=== PATIENT | female | born 1965 | race Caucasian/White ===

== ENCOUNTER 2016-07-08 07:04 | Day surgery (SDC) | payer BC ==
[~2016-07-08] VITALS: Ht 162.6 cm; Wt 63.5 kg
[~2016-07-08 07:04] MED LIST: BREO ELLIPTA 21 EACH; CLARITIN 10 MG10 MG PO; DULERA 100 MCG8.8 GM INH; INCRUSE ELLI62.5 MCG INH; LIORESAL 10 MG10 MG PO; PRISTIQ100 MG PO; PROVENTIL HFA6.7 GM INH; SPIRIVA18 MCG INH; TRAZODONE HCL150 MG PO
[2016-07-08 08:20] VITALS: BP 121/57; Ht 162.6 cm; Wt 63.5 kg
[2016-07-08 08:41] LABS: HCG URINE NEGATIVE (NEGATIVE)
[2016-07-08 09:01] LABS: HEMATOCRIT 39.3 % (36.0-48.0); HEMOGLOBIN 12.3 g/dL (12-16); MCH 31.6 pg (26.0-34.0); MCHC 31.3 g/dL (31.0-37.0); MEAN PLATELET VOLUME 10.2 fL (7.4-10.4); RBC 3.89 10x6/uL (4.00-5.40); RDW 13.3 % (11.5-14.5); WBC 7.9 10x3/uL (4.8-10.8)
--- NOTE | 2016-07-08 12:09 | NUR ---
C/O PAIN TRAMADOL 100 MG PO GIVEN FOR PAIN LEVEL 6
--- NOTE | 2016-07-08 16:03 | NUR ---
1230 IV DC WITH CATHER TIP INTACT
--- NOTE | 2016-08-12 09:40 | OP ---
PATIENT NAME: ROMEL BLANCAS MEDICAL RECORD: [id number] :61 LOCATION:D.OPS ADMISSION DATE: SURGEON: LUIS DANIEL VAZQUEZ MD DATE OF OPERATION: 07/08/2016 PREOPERATIVE DIAGNOSES: 1. Alpha-1 antitrypsin deficiency. 2. In need of frequent IV access in a patient who has poor peripheral IV access. POSTOPERATIVE DIAGNOSES: 1. Alpha-1 antitrypsin deficiency. 2. In need of frequent IV access in a patient who has poor peripheral IV access. PROCEDURES: 1. Placement of left infraclavicular PowerPort under fluoroscopic guidance. 2. Immediate surgeon interpretation of fluoroscopic images. SURGEON: Luis Daniel Vazquez MD CD REACTOR OPERATOR HEAD: None. BLOOD LOSS: Minimal. ANESTHESIA: General. COMPLICATIONS: None. The risks, possible complications and alternatives to procedure were explained to the patient. She elects to proceed. No radiologist was present for this procedure. Static fluoroscopic images are obtained and are kept in the PACS system. The surgeon interpretation of the fluoroscopic images is dictated within the body of this operative note. OPERATIVE COURSE: The patient was conveyed to the operating room electively on 07/08/2016. General anesthesia was induced by the anesthesia staff. The left chest was sterilely prepped and draped. A transverse incision was accomplished inferior to the left clavicle. Sharp dissection was carried down to the level of the pectoralis fascia. A subcutaneous pocket was created in a caudad direction. I then excised some of the subcutaneous adipose tissue between the skin and the pocket in order to allow for easier access of the port. I dissected in the deltopectoral groove. A generous cephalic vein was identified. Two ties were placed in the cephalic vein laterally. A loose tie was placed medially. A small venotomy was accomplished between the ties. I inserted the vein pick. I then advanced the PowerPort catheter. Under fluoroscopy, it was advanced to the cavoatrial junction. The catheter was shortened. It was attached to the PowerPort. The locking device was firmly engaged. I then tightened down on the medial tie. I placed another tie, this time a 3-0 Vicryl tie around the vein and the catheter medially. I then divided the cephalic vein between the ties. The port was then sutured to the underlying pectoralis fascia with 3-point fixation utilizing 3-0 Prolenes. I irrigated with normal saline. I accessed OPERATIVE REPORT [id number] ROMEL BLANCAS the port. It accessed easily. It aspirated dark, nonpulsatile blood and flushed easily as well. It was flushed with heparinized saline. There was no bleeding. The subdermal structures were approximated with interrupted 3-0 Vicryls. The skin was approximated with a running intracuticular 4-0 Vicryl. Benzoin and Steri-Strips were applied. The patient was then extubated and conveyed to post-anesthesia care unit where she was in stable condition. She will be dismissed home on tramadol for pain. There is no need for her to followup with me in the office unless the patient develops a complication related to this operative procedure. The surgeon interpretation of the fluoroscopic images is dictated within the body of this operative note. A final fluoroscopic image revealed the tip of the PowerPort catheter to be at the cavoatrial junction. There was no apparent kinking or twisting of the catheter. No radiographic evidence of complication. No pneumothorax. TRANSINT:[id number] Voice Confirmation ID: [id number] DOCUMENT ID: [id number] CC: HUMZA Camar[place] ROBERT MD at 0940 CC: ENZO MOHAMUD MD, SINDY NATH APN, YENNY WYATT MD and [id number] DICTATION DATE: 07/08/16 1115 SNAKER DRIVING HORSES: 07/08/16 1527 [facility] 07/08/16 [id number] [place] [address]
--- NOTE | 2016-08-12 09:40 | HP ---
PATIENT: ROMEL BLANCAS MEDICAL RECORD: [id number] ACCOUNT: [id number] LOCATION:STEPHENIE : 61 ADMISSION DATE: 07/08/16 HISTORY AND PHYSICAL EXAMINATION CHIEF COMPLAINT: Here for a port. I am going to plan to place a PowerPort. I am going to try to place it on the left. If it is not successful, then I will place it on the right. The risks, possible complications, and alternatives to port placement were explained to the patient. She elects to proceed. The patient has alpha-1 antitrypsin deficiency and requires transfusions frequently. She has poor IV access. For this reason, we are going to proceed with placement of the port. We specifically discussed the risks of port flippage, break, could break, could wear out, it could become infected. PAST MEDICAL AND SURGICAL HISTORY: The alpha-1 antitrypsin deficiency, allergic rhinitis, tracheobronchitis, history of exacerbation of chronic bronchitis, COPD, umbilical hernia and gastroesophageal reflux. ALLERGIES: KEFLEX. HOME MEDICATIONS: Last list of home medicines I have for the patient includes Advair Diskus, Viibryd, Victoza, Ventolin, Spiriva, quetiapine, ProAir inhaler, Latuda, levalbuterol. SOCIAL HISTORY: Smoker. She is on oxygen. FAMILY HISTORY: Alpha-1 antitrypsin deficiency does run in the family. PHYSICAL EXAMINATION: GENERAL: The patient does not appear acutely ill. She does appear chronically ill. The entire physical examination was performed in the presence of a female nurse. VITAL SIGNS: Reviewed. HEAD: External ears appear normal. EYES: Extraocular movements are intact. NECK: Trachea is midline. CHEST: Mild intercostal retractions. PULMONARY: Mildly labored. ABDOMEN: No peritonitis with movement. IMPRESSION: Poor IV access in a patient that requires frequent IV access for infusions due to alpha-1 antitrypsin deficiency. PLAN: Will be placement of PowerPort, left versus right. TRANSINT:[id number] Voice Confirmation ID: [id number] DOCUMENT ID: [id number] CC: Sindy Brooks APN HISTORY AND PHYSICAL [id number] ROMEL BLANCAS, LUIS DANIEL SAGASTUME at 0940 CC: ENZO MOHAMUD MD, SINDY BROOKS, SANDHYA CHING KEVIN M.D., [id number] and ODILON CONNORS MD DICTATION DATE: 07/08/16 0752 PASSENGER COACH DRIVER: 07/08/16824 [facility] 07/08/16 [address] [place] [address]
== END 2016-07-08 13:30 | disposition home or self-care (01) ==
LOC: D.OPS 07:04 → D.PAN 09:30 → D.OPS 10:00
PROVIDERS: Anesthesiology; Surgery
DX: E88.01 Alpha-1-antitrypsin deficiency (principal); J44.9 Chronic obstructive pulmonary disease, unspecified; K21.9 Gastro-esophageal reflux disease without esophagitis; F17.200 Nicotine dependence, unspecified, uncomplicated; Z99.81 Dependence on supplemental oxygen; Z79.899 Other long term (current) drug therapy; Z88.8 Allergy status to other drugs, medicaments and biological substances

== ENCOUNTER → 2016-10-06 20:11 | Outpatient (CLI) | payer BC ==
[2016-07-08 08:20] VITALS: BMI 24.0
== END | disposition home or self-care (01) ==
LOC: D.MAMMO 15:45
DX: Z12.31 Encounter for screening mammogram for malignant neoplasm of breast (principal)

== ENCOUNTER 2017-03-23 12:48 | Outpatient (CLI) | payer BC ==
[2017-03-23 13:39] VITALS: BP 129/66; BMI 24.9
[2017-04-20] MEDS ORDERED: VIIBRYD40 MG PO (06:30)
[2017-04-20] MEDS ORDERED: VYVANSE40 MG PO (06:30)
[2017-04-20] MEDS ORDERED: CLARITIN 10 MG10 MG PO (06:31)
[2017-04-20] MEDS ORDERED: FUROSEMIDE20 MG PO (06:31)
[2017-04-20] MEDS ORDERED: SINGULAIR10 MG PO (06:32)
[2017-04-20] MEDS ORDERED: LITHIUM CARBON300 MG PO (06:33)
[2017-04-20] MEDS ORDERED: ZYPREXA10 MG PO (06:33)
[2017-04-20] MEDS ORDERED: XOPENEX IN0.31 MG/3 UPD (06:34)
[2017-04-20] MEDS ORDERED: VITAMIN D5000 UNIT PO (06:34)
== END 2017-03-23 13:50 ==
LOC: D.OPS 12:48
DX: M81.0 Age-related osteoporosis without current pathological fracture (principal)

== ENCOUNTER → 2017-03-24 13:35 | Outpatient (CLI) | payer BC ==
[2017-03-23 13:39] VITALS: BMI 24.9
[~2017-03-24 13:35] MED LIST changes: +FUROSEMIDE20 MG PO; +LITHIUM CARBON300 MG PO; +SINGULAIR10 MG PO; +VIIBRYD40 MG PO; +VITAMIN D5000 UNIT PO; +VYVANSE40 MG PO; +XOPENEX IN0.31 MG/3 UPD; +ZYPREXA10 MG PO
== END | disposition home or self-care (01) ==
LOC: D.CT 13:35
DX: J44.9 Chronic obstructive pulmonary disease, unspecified (principal); R06.00 Dyspnea, unspecified

== ENCOUNTER → 2017-04-20 06:48 | Outpatient (CLI) | payer BC ==
[~2017-04-20] VITALS: Ht 162.6 cm; Wt 68.2 kg
--- NOTE | ~2017-04-20 | HEMODYNAMI ---
PATIENT:ROMEL BLANCAS MEDICAL RECORD: [id number] : 61 LOCATION:DAndrewCAT ADMISSION DATE: 04/20/17 Generatedon:04/20/20178:40 Patient name: ROMEL BLANCAS Patient #: [id number] SSN: : 1965 Date of study: 04/20/2017 Page: Of Hemodynamic Procedure Report Patient Data Patient Demographics Procedure consent was obtained First Name: ROMEL Gender: Female Last Name: MAGALIS : 1965 Patient #: [id number] Age: 51 year(s) Race: Unknown Additional ID: [id number] Contact details [address]: [address] [place] [address] State: [place] City: [place] Zip code: [address] Past Medical History Allergies Allergen Reaction Date Comments Reported Other allergy 04/20/2017 KEFLEX Admission Admission Data Admission Date: 04/20/2017 Admission Time: 6:48 Procedure Procedure Types Cath Procedure Diagnostic Procedure LHC LHC w/Coronaries Miscellaneous Procedures Moderate Sedation up to 15 minutes Procedure Description Procedure Date Procedure Date: 04/20/2017 Procedure Start Time: 8:27 Procedure End Time: 8:40 Procedure Staff Name Function Gama Dee MD Performing Physician Danelle Alicia RT Monitor Nicolasa Ward RT Scrub Joel Talbert RN Nurse Karl Pavon RN Can Tender Procedure Data Cath Procedure Fluoroscopy Diagnostic fluoroscopy Total fluoroscopy Time: 1.7 time: 1.7 min min Diagnostic fluoroscopy Total fluoroscopy dose: 168 dose: 168 mGy mGy Contrast Material Contrast Material Type Amount (ml) Isovue 300 56 Entry Location Entry Primary Successful Side Size Upsize Upsize Entry Closure Succes sful Closure Location (Fr) 1 (Fr) 2 (Fr) Remarks Device Remarks Femoral Right 5 Fr Exoseal artery Estimated blood loss: 5 ml Diagnostic catheters Device Type Used For End Catheter Placement MULTIPACK JL 4.0 5Fr Left Coronary catheter Angiography MULTIPACK 3DRC 5Fr Right Coronary catheter Angiography MULTIPACK Pigtail 5 Fr LV Angiography catheter Procedure Complications No complications Procedure Medications Medication Administration Route Dosage 0.9% NaCl I.V. 100 ml/hr Oxygen NC 2 l/min Heparin Flush Bag added to field 2 bags (1000units/500ml NS) Lidocaine 2% added to field 20 Versed I.V. 2 mg Fentanyl I.V. 100 mcg Hemodynamics Rest Heart Rate: 83 (bpm) Pressure Samples Time Site Value (mmHg) Purpose Heart Use Rate(bpm) 8:35 LV 112/-3,13 EDP 85 8:35 AO 110/61(84) Pullback 86 8:35 LV 107/-4,8 Pullback 86 Gradients Valve Time Site 1 Site 2 Mean SEP/DFP Peak To Heart Use (mmHg) (sec/min) Peak Rate (mmHg) (bpm) Aortic 8:35 LV AO 0 8 0 86 107/-4,8 110/61(84) Calculations Valve P-P Mean Valve Index Valve Source Name Gradient Area Flow (cm2) Aortic 0 0 0 0 Snapshots Pre Cath Intra NCS Post Cath Vital Signs Time Heart Resp SPO2 etCO2 NIBP (mmHg) Rhythm Pain Sedation Rate (ipm) (%) (mmHg) Status Level (bpm) 8:16:17 86 16 100 28 133/71(107) NSR 0 (11) 10(A) , No pain 8:20:58 83 17 100 30.2 128/67(96) NSR 0 (11) 10(A) , No pain 8:25:41 82 16 100 34.8 120/65(96) NSR 0 (11) 10(A) , No pain 8:30:23 84 15 100 34.1 115/62(90) NSR 0 (11) 9(A) , No pain 8:35:04 85 21 100 34.8 117/58(88) NSR 0 (11) 9(A) , No pain 8:39:45 83 12 100 38.6 127/68(91) NSR 0 (11) 9(A) , No pain Medications Time Medication Route Dose Verified Delivered Reason Notes Effec tiveness by by 8:15:42 0.9% NaCl I.V. 100 Joel Joel Per ml/hr Nitish Talbert physician RN RN 8:15:56 Oxygen NC 2 Joel Joel Per l/min Nitish Talbert physician RN RN 8:16:13 Heparin Flush added 2 Joel Joel used for Bag to bags Nitish Talbert procedure (1000units/500ml field RN RN NS) 8:16:28 Lidocaine 2% added 20ml Joel Joel for local to vial Nitish Talbert anesthetic field RN RN 8:26:57 Versed I.V. 2 mg Joel Joel for Lorigan Lorigan sedation RN RN 8:27:09 Fentanyl I.V. 100 Joel Joel for mcg Lorigan Lorfina sedation RN tool specialist Log Time Note 8:01:19 Karl Pavon RN sent for patient. Start room use. 8:01:20 Time tracking: Regular hours 8:01:24 Plan of Care:Hemodynamics will remain stable., Cardiac rhythm will remain stable., Comfort level will be maintained., Respiratory function will remain adequate., Patient/ family verbilizes understanding of procedure., Procedure tolerated without complication., Recovers from procedure without complications.. 8:06:09 Patient received from Pre/Post Procedure Room to CCL 1 Alert and oriented. Tansferred to table in Supine position. 8:06:11 Warm blankets applied, and shaw hugger turned on for patient comfort. 8:06:12 Correct patient and procedure confirmed by team. 8:06:14 Signed procedure consent form obtained from patient. 8:06:14 ECG and BP/O2 sat monitors applied to patient. 8:06:15 Full Disclosure recording started 8:15:20 Vital chart was started 8:15:42 0.9% NaCl 100 ml/hr I.V. was administered by Joel Talbert RN; Per physician; 8:15:56 Oxygen 2 l/min NC was administered by Joel Talbert RN; Per physician; 8:16:13 Heparin Flush Bag (1000units/500ml NS) 2 bags added to field was administered by Joel Talbert RN; used for procedure; 8:16:28 Lidocaine 2% 20ml vial added to field was administered by Joel Talbert RN; for local anesthetic; 8:17:28 Rhythm: sinus rhythm 8:17:31 Baseline sample Acquired. 8:17:40 H&P Date Dictated: 03/24/2017 Within 30 days and on chart., H&P Addendum completed by physician on day of procedure. (MUST COMPLETE FOR ALL OUTPATIENTS). 8:17:42 Pre-procedure instructions explained to patient. 8:17:42 Pre-op teaching completed and patient verbalized understanding. 8:17:43 Family in waiting room. 8:17:45 Patient NPO since Midnight. 8:17:55 Patient allergic to Other allergyKEFLEX 8:17:57 Is the patient allergic to Iodine/contrast media? No. 8:17:59 Is patient on blood thinner?No 8:18:04 Patient diabetic? No. 8:18:07 Previous problem with sedation/anesthesia? No ? 8:18:08 Snore? No 8:18:09 Sleep apnea? No 8:18:10 Deviated septum? No 8:18:11 Opens mouth fully? Yes 8:18:11 Sticks out tongue? Yes 8:18:13 Airway obstruction? No ? 8:18:15 Dentures? No ? 8:18:17 Pre procedure: right dorsailis pedis pulse 2+ Normal; easily identifiable; not easily obliterated 8:18:26 Pre procedure: right radial pulse 0-Absent 8:18:33 Patient pain scale 0/10 ?. 8:18:40 IV patent on arrival in left hand with 0.9% NaCl at O. 8:18:43 Lab results completed and on chart. 8:18:47 Right groin area was prepped with chlora-prep and draped in sterile fashion 8:18:49 Alarms reviewed by R. N. 8:18:49 Sharps counted by scrub and verified by R.N. 8:19:05 Use device set Femoral Dx 8:19:06 ACIST Syringe (78414) opened to sterile field. 8:19:07 Bag Decanter (2002S) opened to sterile field. 8:19:07 Medline Cath Pack ([id number]) opened to sterile field. 8:19:08 SHEATH 5FR [place] (NWN319) opened to sterile field. 8:19:09 DIAGNOSTIC WIRE .035 260cm J wire (260977) opened to sterile field. 8:19:10 ACIST Hand Control (77279) opened to sterile field. 8:19:11 ACIST Manifold (39643) opened to sterile field. 8:19:12 DIAGNOSTIC Multipack 5Fr catheter set ([id number]) opened to sterile field. 8:19:12 Tegaderm 4 x 4 (1626W) opened to sterile field. 8:19:13 PERCUTANEOUS ENTRY 19GA needle opened to sterile field. 8::27 Final Timeout: patient, procedure, and site verified with staff and physician. All members of the team are in agreement. 8::29 Right groin site verified by team. 8::33 Physical assessment completed. ASA score P 2 - A patient with mild systemic disease as per Gama Dee MD. 8:21:36 Sedation plan: IV Moderate Sedation Medication:Versed, Fentanyl 8::43 Procedure started. 8::57 Versed 2 mg I.V. was administered by Joel Talbert RN; for sedation; 8:27:09 Fentanyl 100 mcg I.V. was administered by Joel Talbert RN; for sedation; 8::33 Local anesthetic to right femoral artery with Lidocaine 2% by Gama Dee MD.INITIAL ACCESS ONLY 8:28:57 A 5 Fr sheath was inserted into the Right Femoral artery 8:29:41 A MULTIPACK JL 4.0 5Fr catheter was advanced over the wire and used for Left Coronary Angiography. 8:31:34 Catheter removed. 8:32:23 A MULTIPACK 3DRC 5Fr catheter was advanced over the wire and used for Right Coronary Angiography. 8:33:34 Catheter removed. 8:34:11 A MULTIPACK Pigtail 5 Fr catheter was advanced over the wire and used for LV Angiography. 8:35:15 LV hemodynamics recorded. 8:35:17 LV gram done using NEELY 8:35:21 Injector settings: Ml/sec: 10, Volume: 20, 8:35:26 EF : 50 % 8:35:46 Catheter removed. 8:35:49 EXOSEAL 5Fr (EX500) opened to sterile field. 8:36:01 Sheath removed intact; hemostasis achieved with Exoseal to the Right Femoral artery. 8:36:03 Procedure ended.(Physican Out) 8:36:13 Fluoroscopy time 01.70 minutes. 8:36:16 Fluoroscopy dose: 168 mGy 8:36:16 Flurop Dose total: 168 8:36:19 Contrast amount:Isovue 300 56ml. 8:36:21 Sharps counted by scrub and verified by R.N. 8:36:22 Insertion/operative site no bleeding no hematoma. 8:36:25 Post-op/insertion site Right Femoral artery dressed using a 4 x 4 and Tegaderm. 8:36:27 Post right femoral artery:stable, clean and dry 8:36:29 Post Procedure Pulses reassessed and unchanged 8:36:31 Post-procedure physical assessment completed. ASA score P 2 - A patient with mild systemic disease as per Gama Dee MD. 8:36:33 Post procedure rhythm: unchanged. 8:36:35 Estimated blood loss: 5 ml 8:36:36 Post procedure instruction explained to patient.Patient verbalizes understanding. 8:36:37 Patient needs reinforcement of post procedure teaching. 8:36:43 Procedure type changed to Cath procedure, Diagnostic procedure, LHC, LHC w/Coronaries, Miscellaneous Procedures, Moderate Sedation up to 15 minutes 8:37:28 Procedure and supply charges have been captured, reviewed, submitted and are correct. 8:37:32 Procedure Complication : No complications 8:37:34 See physician's report for complete and final results. 8:39:48 Vital chart was stopped 8:39:50 Report given to Pre/Post Procedure Room. 8:39:55 Patient transfered to Pre/Post Procedure Room with Stretcher. 8:40:20 Procedure ended. 8:40:20 Full Disclosure recording stopped 8:40:29 End room use (Document Last) Device Usage Item Name Manufacture Quantity Catalog Hospital Part Current Minimal Lot# / Number Charge Number Stock Stock Serial# Code ACIST Acist 1 99967 066922 579674 909297 20 Syringe Medical (76992) Systems Inc Bag Decanter Microtek 1 2001S 577525 78235 194282 5 () Medical Inc. Medline Cath Cardinal 1 [id number] 353983 54111 583041 5 Pack Health ([id number]) SHEATH 5FR Terumo 1 [id number] 109054 281898 295168 40 [place] (FUL467) DIAGNOSTIC St Jm 1 161316 184822 449487 233072 30 WIRE .035 260cm J wire (378020) ACIST Hand Acist 1 66805 730713 963056 633953 5 Control Medical (51429) Systems Inc ACIST Acist 1 32074 340753 565972 260769 5 Manifold Medical (57488) Systems Inc DIAGNOSTIC Cardinal 1 [id number] 449624 92742 808165 30 Multipack Health 5Fr catheter set ([id number]) Tegaderm 4 x 3M 1 1626W 490510 836759 634183 5 4 (1626W) PERCUTANEOUS [facility] 1 [id number] 167389 150244 5 ENTRY 19GA needle MULTIPACK JL Cardinal 1 693736 5 4.0 5Fr Health catheter MULTIPACK Cardinal 1 768776 5 3DRC 5Fr Health catheter MULTIPACK Cardinal 1 237729 5 Pigtail 5 Fr Health catheter EXOSEAL 5Fr Cardinal 1 EX500 068784 347559 425658 10 (EX500) Health Signature Audit [place] Stage Time Signature Unsigned Intra-Procedure 04/20/2017 Danelle 8:40:44 AM Counts RT(R) Signatures Monitor : Danelle Signature : Counts RT Date : Time : [address] [address]
[2017-04-20 06:53] VITALS: BP 126/65; Ht 162.6 cm; Wt 68.2 kg
[2017-04-20 07:03] LABS: BASOPHILS 0.4 % (0-2); EOSINOPHILS 2.9 % (0-7); HEMATOCRIT 40.9 % (36.0-48.0); HEMOGLOBIN 13.1 g/dL (12-16); IMMATURE GRANULOCYTES 0.1 % (0-5); LYMPHOCYTES 19.8 % (15-50); MCH 31.6 pg (26.0-34.0); MCV 98.8 fL (80.0-100.0); MEAN PLATELET VOLUME 9.5 fL (7.4-10.4); NEUTROPHILS 70.8 % (40-80); RBC 4.14 10x6/uL (4.00-5.40); RDW 13.3 % (11.5-14.5); WBC 7.8 10x3/uL (4.8-10.8)
[2017-04-20 07:17] LABS: CALC OSMOLALITY 283 mosm/kg (275-300); CALCIUM 9.9 mg/dL (8.5-10.1); CARBON DIOXIDE 25.6 mmol/L (21.0-32.0); CHLORIDE - SERUM 107 mmol/L (98-107); CREATININE - SERUM 0.8 mg/dL (0.6-1.3); PLATELET COUNT 370 10x3/uL (130-400); POTASSIUM - SERUM 4.1 mmol/L (3.5-5.1); SODIUM 142 mmol/L (136-145); UREA NITROGEN 14 mg/dL (7-18); eGFR NON AFRICAN AMERICAN 79 mL/min (90-120)
[2017-04-20 07:18] LABS: GLUCOSE 93 mg/dL (74-106)
--- NOTE | 2017-04-20 09:16 | NUR ---
5 FR EXOSEAL R/GROIN CDI NO BLEEDING NO HEMATOMA NOTED. VSS WITH PAIN DENIED
--- NOTE | 2017-04-20 09:24 | NUR ---
RESTING QUIELTY WITH FAMILY AT SIDE. 5 FR EXOSEAL R/GROIN CDI NO BLEEDING NO HEMATOMA NOTED O2 AT 2 LITERS
--- NOTE | 2017-04-20 09:44 | NUR ---
5 FR EXOSEAL R/GROIN CDI NO BLEEDING NO HEMATOMA NOTED PULSES PALPABLE. VSS WITH CHEST PAIN DENIED
--- NOTE | 2017-04-20 10:12 | NUR ---
SANDWICH AND SODA TO BEDSIDE WITH FAMILY TO ASSIST. 5 FR EXOSEAL R/GROIN REMAINS CDI WITH NO CHANGE. VSS
--- NOTE | 2017-04-20 10:54 | NUR ---
NO CHANGE IN ASSESSMENT PAIN DENIED
--- NOTE | 2017-04-20 11:00 | NUR ---
5 FR EXOSEAL R/GROIN CDI NO BLEEDING NO HEMATOMA NOTED. REPOSITIONED TO SITTING WITH HOB UP 45 DEGREES. CHEST PAIN IS DENIED
--- NOTE | 2017-04-20 11:22 | NUR ---
PIV REMOVED WITH DRESSING APPLIED. R/GROIN REMAINS CDI VERBAL AND WRITTEN DISCHARGE GONE OVER WITH PATIENT AND SISTER BOTH VERBALIZE UNDERSTANDING. PATIENT UP TO GET DRESSED FOR DISCHARGE HOME
--- NOTE | 2017-04-20 11:37 | NUR ---
VERBAL AND WRITTEN DISCHARGE GONE OVER AGAIN TO CONFIRM UNDERSTANDING. R/GROIN CDI WITH NO DISTRESS. PATIENT LEFT VIA WC TO PARKING FOR SISTER TO DRIVE HOME
== END | disposition home or self-care (01) ==
LOC: D.CATH 06:48
PROVIDERS: Internal Medicine Cardiovascular Disease
DX: I20.9 Angina pectoris, unspecified (principal); R06.02 Shortness of breath; J44.9 Chronic obstructive pulmonary disease, unspecified; I42.9 Cardiomyopathy, unspecified; Z01.812 Encounter for preprocedural laboratory examination

== ENCOUNTER 2017-11-24 12:30 | Inpatient (IN) | payer BC ==
[~2017-11-24] VITALS: Ht 162.6 cm; Wt 64.5 kg
--- NOTE | ~2017-11-24 | CN ---
PATIENT NAME:ROMEL BLANCAS MEDICAL RECORD: [id number] : 61 LOCATION:D.MS [place]2227 ADMIT DATE: 11/24/17 ACCOUNT: [id number] CONSULTING PHYSICIAN: SHERMAN GALVEZ MD REFERRING PHYSICIAN: ERMIAS VIERA MD DATE OF CONSULTATION: 11/25/2017 CONSULT REQUESTING PHYSICIAN: Ermias Viera MD REASON FOR CONSULTATION: Acute exacerbation of chronic obstructive pulmonary disease, sjfla-hu-ryjapui hypoxic respiratory failure. HISTORY OF PRESENT ILLNESS: Ms. Blancas is a 52-year-old female who has a history of alpha-1 antitrypsin deficiency. She is followed at [facility]. The patient is getting Prolastin every week. According to the patient, she was short of breath for the last few days. She is coughing without much sputum production. There is no fever or chills. No night sweats. REVIEW OF SYSTEMS: Mainly in the history of present illness. PAST MEDICAL HISTORY: 1. COPD, moderate severe degree. 2. Alpha-1 antitrypsin deficiency. 3. History of cardiomyopathy and congestive heart failure 10 years ago. 4. Anxiety, depression. PAST SURGICAL HISTORY: 1. She has a . 2. Left ovary removed. ALLERGIES: SHE IS ALLERGIC TO CEPHALEXIN, AND ALBUTEROL NEBULIZER MAKE TACHYCARDIC. MEDICATIONS: Other medication on [employer] is reviewed. PERSONAL AND SOCIAL HISTORY: The patient is an ex-smoker. She is a nondrinker. FAMILY HISTORY: Significant for alpha-1 deficiency. PHYSICAL EXAMINATION: GENERAL: Now, the patient is sitting comfortably in a chair. She is not in acute distress. VITAL SIGNS: The blood pressure is 128/72, pulse is 106, respiration is 18, temperature is 99, SpO2 is 96% on 3 liters nasal cannula. HEENT: Conjunctivae are pink. Sclerae is not icteric. NECK: Supple, no JVD. CHEST: The chest excursion is minimal on both sides. There is no wheeze, no rales. HEART: Rhythm regular, normal sound, no murmur. ABDOMEN: Soft, bowel sounds present. No hepatosplenomegaly. RECTAL: Deferred. EXTREMITIES: No cyanosis, no clubbing, no pedal edema. SKIN: Warm, normal turgor. CENTRAL NERVOUS SYSTEM: The patient is awake and alert. There are no obvious cranial nerve abnormality. The gait was not tested. CONSULT REPORT [id number] ROMEL BLANCAS CHEST RADIOGRAPH: Hyperinflation. There is no acute infiltrate. OTHER LABORATORY DATA: CBC: WBC 10.9, hemoglobin 11.6, hematocrit 36.2, the platelet count 390. Chemistry: Sodium 141, potassium is 4, BUN is 7, creatinine 0.8. ABG: The pH is 7.40, pCO2 is 38.7, the pO2 is 97, bicarbonate 24.1. IMPRESSION: 1. Acute exacerbation of chronic obstructive pulmonary disease. 2. Hxrsy-yc-wztlxyc hypoxic respiratory failure. 3. Acute tracheobronchitis. 4. Alpha-1 antitrypsin deficiency. 5. Leukocytosis. 6. Anxiety. 7. History of congestive heart failure. RECOMMENDATION: 1. Start on doxycycline 100 mg b.i.d. 2. Xopenex nebulizer, ipratropium nebulizer, Brovana and budesonide nebulizer. Start her on Daliresp 250 mcg daily. 3. Supplemental oxygen. 4. Follow up labs and chest radiograph. Dr. Viera had discussed in length with the family. Dr. Viera, thank you for involving me in the care of Ms. Blancas. TRANSINT:[id number] Voice Confirmation ID: [id number] DOCUMENT ID: [id number] SHERMAN GALVEZ MD at 1110 CC: [id number] DICTATION DATE: 11/25/17 1618 COMMERCIAL CARPENTER: 11/25/17 1708 DIS IN 12/01/17 [id number] [place] [id number]
[2017-11-24 13:52] LABS: BASOPHILS 0.7 % (0-2); EOSINOPHILS 0.8 % (0-7); HEMATOCRIT 38.1 % (36.0-48.0); HEMOGLOBIN 12.3 g/dL (12-16); IMMATURE GRANULOCYTES 0.3 % (0-5); LYMPHOCYTES 19.8 % (15-50); MCH 31.3 pg (26.0-34.0); MCHC 32.3 g/dL (31.0-37.0); MCV 96.9 fL (80.0-100.0); MEAN PLATELET VOLUME 9.8 fL (7.4-10.4); NEUTROPHILS 71.4 % (40-80); PLATELET COUNT 385 10x3/uL (130-400); RBC 3.93 10x6/uL (4.00-5.40); RDW 13.5 % (11.5-14.5); WBC 7.5 10x3/uL (4.8-10.8)
[2017-11-24 14:16] LABS: ALBUMIN 3.6 g/dL (3.4-5.0); ALKALINE PHOSPHATASE 75 U/L (46-116); ALT (SGPT) 23 U/L (10-68); BILIRUBIN - TOTAL 0.24 mg/dL (0.2-1.3); CALC OSMOLALITY 279 mosm/kg (275-300); CALCIUM 9.8 mg/dL (8.5-10.1); CARBON DIOXIDE 29.2 mmol/L (21.0-32.0); CHLORIDE - SERUM 106 mmol/L (98-107); CREATININE - SERUM 0.8 mg/dL (0.6-1.3); GLUCOSE 86 mg/dL (74-106); POTASSIUM - SERUM 3.7 mmol/L (3.5-5.1); PROTEIN - SERUM 6.8 g/dL (6.4-8.2); SODIUM 142 mmol/L (136-145); UREA NITROGEN 7 mg/dL (7-18); eGFR NON AFRICAN AMERICAN 79 mL/min (90-120)
[2017-11-24 14:29] LABS: PRO BNP 170 pg/mL (0-125)
[2017-11-24 14:30] LABS: TROPONIN-I < 0.017 ng/mL (0.000-0.060)
[2017-11-24 16:35] LABS: APPEARANCE CLEAR (CLEAR); BILIRUBIN NEGATIVE (NEGATIVE); COLOR YELLOW (YELLOW); GLUCOSE NEGATIVE (NEGATIVE); KETONE NEGATIVE (NEGATIVE); NITRITE NEGATIVE (NEGATIVE); PROTEIN NEGATIVE (NEGATIVE); UROBILINOGEN NORMAL (NORMAL)
[2017-11-24 16:40] LABS: BACTERIA FEW /hpf (NONE SEEN); EPITHELIAL CELLS 0-5 /hpf (0-5); RED CELLS - URINE 0-5 /hpf (0-5); WHITE CELLS - URINE 0-5 /hpf (0-5)
[2017-11-24] MEDS ORDERED: LUNESTA2 M1 PO (17:37)
[2017-11-24] MEDS ORDERED: VICTOZA0.6 MG/0.1 SQ (17:37)
[2017-11-24 17:56] VITALS: BP 132/53; Ht 162.6 cm; Wt 64.5 kg
[2017-11-24 19:59] VITALS: BP 96/52
[2017-11-24 23:24] VITALS: BP 122/53
[2017-11-25 03:50] VITALS: BP 113/75
[2017-11-25 06:48] VITALS: BP 135/60
[2017-11-25 10:36] LABS: BASOPHILS 0 % (0-2); EOSINOPHILS 0 % (0-7); HEMATOCRIT 36.2 % (36.0-48.0); HEMOGLOBIN 11.6 g/dL (12-16); IMMATURE GRANULOCYTES 0.1 % (0-5); LYMPHOCYTES 4.7 % (15-50); MCH 31.1 pg (26.0-34.0); MCV 97.1 fL (80.0-100.0); MEAN PLATELET VOLUME 9.8 fL (7.4-10.4); MONOCYTES 2.7 % (2-11); NEUTROPHILS 92.5 % (40-80); PLATELET COUNT 390 10x3/uL (130-400); RBC 3.73 10x6/uL (4.00-5.40); RDW 13.2 % (11.5-14.5)
[2017-11-25 10:38] LABS: WBC 10.9 10x3/uL (4.8-10.8)
[2017-11-25 10:51] LABS: ALBUMIN 3.2 g/dL (3.4-5.0); ALKALINE PHOSPHATASE 71 U/L (46-116); ALT (SGPT) 19 U/L (10-68); BILIRUBIN - TOTAL 0.16 mg/dL (0.2-1.3); CALC OSMOLALITY 280 mosm/kg (275-300); CALCIUM 9.9 mg/dL (8.5-10.1); CARBON DIOXIDE 29.1 mmol/L (21.0-32.0); CHLORIDE - SERUM 107 mmol/L (98-107); CREATININE - SERUM 0.8 mg/dL (0.6-1.3); GLUCOSE 127 mg/dL (74-106); PROTEIN - SERUM 6.8 g/dL (6.4-8.2); SODIUM 141 mmol/L (136-145); UREA NITROGEN 7 mg/dL (7-18); eGFR NON AFRICAN AMERICAN 79 mL/min (90-120)
[2017-11-25 12:28] VITALS: BP 132/69
[2017-11-25 15:53] VITALS: BP 128/72
[2017-11-25 20:08] VITALS: BP 102/51
[2017-11-25 23:54] VITALS: BP 101/51
[2017-11-26 03:53] VITALS: BP 144/81
[2017-11-26 05:57] LABS: BASOPHILS 0 % (0-2); EOSINOPHILS 0 % (0-7); HEMATOCRIT 37.5 % (36.0-48.0); HEMOGLOBIN 11.7 g/dL (12-16); IMMATURE GRANULOCYTES 0.2 % (0-5); LYMPHOCYTES 5.9 % (15-50); MCH 30.8 pg (26.0-34.0); MCHC 31.2 g/dL (31.0-37.0); MCV 98.7 fL (80.0-100.0); MEAN PLATELET VOLUME 10.5 fL (7.4-10.4); MONOCYTES 1.7 % (2-11); NEUTROPHILS 92.2 % (40-80); PLATELET COUNT 417 10x3/uL (130-400); RDW 13.4 % (11.5-14.5)
[2017-11-26 06:03] LABS: WBC 13.9 10x3/uL (4.8-10.8)
[2017-11-26 06:21] LABS: ALBUMIN 3.2 g/dL (3.4-5.0); ANION GAP 9.9 mmol/L (8-16); BILIRUBIN - TOTAL 0.21 mg/dL (0.2-1.3); CALCIUM 9.9 mg/dL (8.5-10.1); CREATININE - SERUM 0.9 mg/dL (0.6-1.3); POTASSIUM - SERUM 3.9 mmol/L (3.5-5.1)
[2017-11-26 06:41] LABS: PROTEIN - SERUM 6.7 g/dL (6.4-8.2)
[2017-11-26 08:00] VITALS: BP 126/60
[2017-11-26 12:50] VITALS: BP 154/84
[2017-11-26 15:36] VITALS: BP 119/66
[2017-11-26 20:01] VITALS: BP 117/63
[2017-11-27 03:45] VITALS: BP 151/72
[2017-11-27 05:10] LABS: BASOPHILS 0 % (0-2); EOSINOPHILS 0 % (0-7); HEMATOCRIT 36.8 % (36.0-48.0); HEMOGLOBIN 11.4 g/dL (12-16); IMMATURE GRANULOCYTES 0.5 % (0-5); LYMPHOCYTES 6.9 % (15-50); MONOCYTES 4.3 % (2-11); NEUTROPHILS 88.3 % (40-80); PLATELET COUNT 388 10x3/uL (130-400); RBC 3.68 10x6/uL (4.00-5.40); RDW 13.4 % (11.5-14.5); WBC 14.8 10x3/uL (4.8-10.8)
[2017-11-27 06:01] LABS: ALKALINE PHOSPHATASE 67 U/L (46-116); ALT (SGPT) 27 U/L (10-68); BILIRUBIN - TOTAL 0.21 mg/dL (0.2-1.3); CALC OSMOLALITY 291 mosm/kg (275-300); CALCIUM 9.7 mg/dL (8.5-10.1); CARBON DIOXIDE 29.6 mmol/L (21.0-32.0); CHLORIDE - SERUM 110 mmol/L (98-107); CREATININE - SERUM 0.8 mg/dL (0.6-1.3); GLUCOSE 172 mg/dL (74-106); POTASSIUM - SERUM 4.1 mmol/L (3.5-5.1); PROTEIN - SERUM 6.2 g/dL (6.4-8.2); SODIUM 144 mmol/L (136-145); UREA NITROGEN 14 mg/dL (7-18); eGFR NON AFRICAN AMERICAN 79 mL/min (90-120)
[2017-11-27 08:35] VITALS: BP 153/70
[2017-11-27 13:59] VITALS: BP 131/58
[2017-11-27 16:44] VITALS: BP 124/63
[2017-11-27 19:41] VITALS: BP 121/54
[2017-11-28 01:24] VITALS: BP 96/53
[2017-11-28 04:12] VITALS: BP 151/90
[2017-11-28 05:55] LABS: BASOPHILS 0 % (0-2); EOSINOPHILS 0 % (0-7); HEMATOCRIT 35.8 % (36.0-48.0); HEMOGLOBIN 11.1 g/dL (12-16); IMMATURE GRANULOCYTES 0.5 % (0-5); LYMPHOCYTES 7.7 % (15-50); MCH 30.7 pg (26.0-34.0); MCV 99.2 fL (80.0-100.0); MEAN PLATELET VOLUME 10.1 fL (7.4-10.4); MONOCYTES 7.3 % (2-11); NEUTROPHILS 84.5 % (40-80); PLATELET COUNT 378 10x3/uL (130-400); RBC 3.61 10x6/uL (4.00-5.40); RDW 13.5 % (11.5-14.5); WBC 11.5 10x3/uL (4.8-10.8)
[2017-11-28 06:21] LABS: ALBUMIN 2.9 g/dL (3.4-5.0); ALKALINE PHOSPHATASE 71 U/L (46-116); ALT (SGPT) 22 U/L (10-68); BILIRUBIN - TOTAL 0.18 mg/dL (0.2-1.3); CALC OSMOLALITY 293 mosm/kg (275-300); CALCIUM 9.7 mg/dL (8.5-10.1); CARBON DIOXIDE 32.2 mmol/L (21.0-32.0); CHLORIDE - SERUM 112 mmol/L (98-107); CREATININE - SERUM 0.7 mg/dL (0.6-1.3); GLUCOSE 134 mg/dL (74-106); MAGNESIUM - SERUM 2.3 mg/dL (1.8-2.4); PHOSPHOROUS 1.8 mg/dL (2.5-4.9); SODIUM 147 mmol/L (136-145); UREA NITROGEN 13 mg/dL (7-18); eGFR NON AFRICAN AMERICAN > 90 mL/min (90-120)
[2017-11-28 09:05] VITALS: BP 144/81
[2017-11-28 11:57] VITALS: BP 150/78
[2017-11-28 16:53] VITALS: BP 127/54
[2017-11-28 20:00] VITALS: BP 135/77
[2017-11-29 04:47] LABS: BASOPHILS 0 % (0-2); EOSINOPHILS 0 % (0-7); HEMATOCRIT 34.9 % (36.0-48.0); HEMOGLOBIN 10.8 g/dL (12-16); IMMATURE GRANULOCYTES 0.9 % (0-5); LYMPHOCYTES 9.4 % (15-50); MCH 30.5 pg (26.0-34.0); MCHC 30.9 g/dL (31.0-37.0); MCV 98.6 fL (80.0-100.0); MONOCYTES 4.4 % (2-11); NEUTROPHILS 85.3 % (40-80); PLATELET COUNT 339 10x3/uL (130-400); RBC 3.54 10x6/uL (4.00-5.40); RDW 13.5 % (11.5-14.5); WBC 10.4 10x3/uL (4.8-10.8)
[2017-11-29 05:15] LABS: ALBUMIN 2.6 g/dL (3.4-5.0); ALKALINE PHOSPHATASE 64 U/L (46-116); ALT (SGPT) 23 U/L (10-68); BILIRUBIN - TOTAL 0.23 mg/dL (0.2-1.3); CALC OSMOLALITY 293 mosm/kg (275-300); CALCIUM 9.3 mg/dL (8.5-10.1); CARBON DIOXIDE 33.7 mmol/L (21.0-32.0); CHLORIDE - SERUM 111 mmol/L (98-107); CREATININE - SERUM 0.7 mg/dL (0.6-1.3); GLUCOSE 149 mg/dL (74-106); POTASSIUM - SERUM 4.4 mmol/L (3.5-5.1); PROTEIN - SERUM 5.6 g/dL (6.4-8.2); SODIUM 146 mmol/L (136-145); THYROID STIMULATING HORMONE 0.92 uIU/mL (0.36-3.74); UREA NITROGEN 12 mg/dL (7-18); eGFR NON AFRICAN AMERICAN > 90 mL/min (90-120)
[2017-11-29 05:46] VITALS: BP 124/71
[2017-11-29 07:44] VITALS: BP 142/77
[2017-11-29 15:49] VITALS: BP 131/71
[2017-11-29 19:53] VITALS: BP 137/80
[2017-11-29 23:54] VITALS: BP 138/78
[2017-11-30 04:00] VITALS: BP 116/70
[2017-11-30 05:19] LABS: BASOPHILS 0.1 % (0-2); EOSINOPHILS 0 % (0-7); HEMATOCRIT 34.6 % (36.0-48.0); HEMOGLOBIN 10.9 g/dL (12-16); LYMPHOCYTES 8.6 % (15-50); MCHC 31.5 g/dL (31.0-37.0); MCV 98.3 fL (80.0-100.0); MEAN PLATELET VOLUME 10.2 fL (7.4-10.4); MONOCYTES 5.4 % (2-11); NEUTROPHILS 84.9 % (40-80); PLATELET COUNT 355 10x3/uL (130-400); RBC 3.52 10x6/uL (4.00-5.40); RDW 13.8 % (11.5-14.5)
[2017-11-30 05:29] LABS: ALBUMIN 2.8 g/dL (3.4-5.0); ALKALINE PHOSPHATASE 61 U/L (46-116); ALT (SGPT) 23 U/L (10-68); BILIRUBIN - TOTAL 0.25 mg/dL (0.2-1.3); CALCIUM 9.6 mg/dL (8.5-10.1); CARBON DIOXIDE 29.9 mmol/L (21.0-32.0); CHLORIDE - SERUM 108 mmol/L (98-107); CREATININE - SERUM 0.8 mg/dL (0.6-1.3); GLUCOSE 145 mg/dL (74-106); PROTEIN - SERUM 5.8 g/dL (6.4-8.2); SODIUM 146 mmol/L (136-145); eGFR NON AFRICAN AMERICAN 79 mL/min (90-120)
[2017-11-30 05:37] LABS: CALC OSMOLALITY 294 mosm/kg (275-300); UREA NITROGEN 16 mg/dL (7-18)
[2017-11-30 08:11] VITALS: BP 131/75
[2017-11-30 11:43] VITALS: BP 124/75
[2017-11-30 15:25] VITALS: BP 109/70
[2017-11-30 20:00] VITALS: BP 123/60
[2017-12-01 04:00] VITALS: BP 105/56
[2017-12-01 05:48] LABS: BASOPHILS 0.1 % (0-2); EOSINOPHILS 2.3 % (0-7); HEMATOCRIT 34.8 % (36.0-48.0); HEMOGLOBIN 10.9 g/dL (12-16); IMMATURE GRANULOCYTES 1.3 % (0-5); LYMPHOCYTES 26.4 % (15-50); MCHC 31.3 g/dL (31.0-37.0); MCV 98.9 fL (80.0-100.0); MEAN PLATELET VOLUME 9.9 fL (7.4-10.4); MONOCYTES 8.2 % (2-11); NEUTROPHILS 61.7 % (40-80); PLATELET COUNT 330 10x3/uL (130-400); RBC 3.52 10x6/uL (4.00-5.40); RDW 14.4 % (11.5-14.5); WBC 10.3 10x3/uL (4.8-10.8)
[2017-12-01 06:23] LABS: CALC OSMOLALITY 283 mosm/kg (275-300); CALCIUM 9.4 mg/dL (8.5-10.1); CARBON DIOXIDE 31.5 mmol/L (21.0-32.0); CHLORIDE - SERUM 110 mmol/L (98-107); CREATININE - SERUM 0.8 mg/dL (0.6-1.3); POTASSIUM - SERUM 4.2 mmol/L (3.5-5.1); SODIUM 143 mmol/L (136-145); UREA NITROGEN 13 mg/dL (7-18); eGFR NON AFRICAN AMERICAN 79 mL/min (90-120)
[2017-12-01 06:24] LABS: GLUCOSE 87 mg/dL (74-106)
[2017-12-01 07:45] LABS: APPEARANCE CLEAR (CLEAR); COLOR STRAW (YELLOW)
[2017-12-01 07:46] LABS: BILIRUBIN NEGATIVE (NEGATIVE); GLUCOSE NEGATIVE (NEGATIVE); KETONE NEGATIVE (NEGATIVE); NITRITE NEGATIVE (NEGATIVE); PROTEIN NEGATIVE (NEGATIVE); UROBILINOGEN NORMAL (NORMAL)
[2017-12-01 09:35] VITALS: BP 126/63
[2017-12-01] MEDS ORDERED: FEXOFENADINE HC60 MG PO (12:13)
[2017-12-01] MEDS ORDERED: BROVANA15 MCG/2 M INH (12:14)
[2017-12-01] MEDS ORDERED: DOXYCYCLINE HY100 M2 PO (12:14)
[2017-12-01] MEDS ORDERED: XOPENEX 0.0.63 MG/3 UPD (12:15)
[2017-12-01] MEDS ORDERED: ATROVENT 0.02%2.5 ML UPD (12:15)
[2017-12-01] MEDS ORDERED: PULMICORT0.5 MG/21 UPD (12:16)
[2017-12-01] MEDS ORDERED: SINGULAIR10 MG PO (12:16)
[2017-12-01] MEDS ORDERED: DALIRESP500 MCG PO (12:17)
[2017-12-01] MEDS ORDERED: PREDNISONE20 MG PO (12:18)
[2017-12-01 16:07] VITALS: BP 154/71
== END 2017-12-01 15:00 | disposition home health service (06) | DRG 189 ==
LOC: D.ER 12:30 → D.EDHOLD 15:02 → D.MS 15:02
PROVIDERS: Emergency Medicine; Family Medicine; Internal Medicine Nephrology
DX: J96.21 Acute and chronic respiratory failure with hypoxia (principal); J44.1 Chronic obstructive pulmonary disease with (acute) exacerbation; J44.0 Chronic obstructive pulmonary disease with (acute) lower respiratory infection; I42.9 Cardiomyopathy, unspecified; J20.9 Acute bronchitis, unspecified; E88.01 Alpha-1-antitrypsin deficiency; I50.9 Heart failure, unspecified; F41.9 Anxiety disorder, unspecified; D72.829 Elevated white blood cell count, unspecified; D53.9 Nutritional anemia, unspecified; E55.9 Vitamin D deficiency, unspecified; R53.81 Other malaise

== ENCOUNTER 2017-12-19 22:24 | Inpatient (IN) | payer BC ==
[~2017-12-19] VITALS: Ht 162.6 cm; Wt 54.0 kg
--- NOTE | ~2017-12-19 | CN ---
PATIENT NAME:ROMEL BLANCAS MEDICAL RECORD: [id number] : 61 LOCATION:D. D.1209 ADMIT DATE: 12/20/17 ACCOUNT: [id number] CONSULTING PHYSICIAN: BRAYAN BERMUDEZ REFERRING PHYSICIAN: JEY BURNS MD DATE OF CONSULTATION: 12/20/2017 HISTORY OF PRESENT ILLNESS: This is a 52-year-old female, who has had a history of alpha-1 antitrypsin deficiency. The patient has been treated in the pulmonary clinic. She also has a specialist with alpha-1 antitrypsin deficiency. The patient's enzymes have been very low. She is currently being given enzymes every week. Her lab work has still low and her FEV1 levels have been declining. The patient has also had anxiety and this exacerbates her breathing. She has had increasing shortness of breath recently. She presented to the Emergency Room for further care. 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 She has had COPD secondary to alpha-1 antitrypsin deficiency. Has had depression. PAST SURGICAL HISTORY: Includes , left ovary removed. ALLERGIES: INCLUDE CEPHALOSPORINS AND ALBUTEROL CAUSES TACHYCARDIA, ANXIETY, AND TREMOR. MEDICATIONS ON ADMISSION: Include Cristy 60 mg b.i.d., Brovana 15 mcg b.i.d., doxycycline 100 mg b.i.d., Atrovent nebulizers every 6 hours, levalbuterol nebulizer every 6 hours, pulmicort 5 mg updraft b.i.d., Singulair 10 mg at bedtime, Daliresp 250 mg daily, prednisone 40 mg daily, Prolastin weekly. FAMILY HISTORY: Remarkable for alpha-1 antitrypsin deficiency. SOCIAL HISTORY: The patient does not drink, smoke, or use illicit drugs. REVIEW OF SYSTEMS: CONSTITUTIONAL: The patient denies any weight loss or decreased appetite. SHEENT: There is no headache, nasal drainage, or sore throat. CARDIOPULMONARY: The patient denies any orthopnea or PND. There is no chest pain. GASTROINTESTINAL: There is no nausea, vomiting, or abdominal pain. GENITOURINARY: There is no frequency or dysuria. PHYSICAL EXAMINATION: GENERAL: Reveals a young female, who is in no acute distress, sitting in bed. VITAL SIGNS: Temperature 97.9, heart rate of 104, respiratory rate of 22, blood pressure 154/87, saturation 99%. SHEENT: Unremarkable. NECK: Supple. CHEST: Clear with no wheezes. There are decreased breath sounds. CARDIAC: Shows no jugular venous distention, murmur, or gallops. ABDOMEN: Benign without any tenderness, masses, or distention. EXTREMITIES: No clubbing, cyanosis, or edema. LABORATORY DATA: Lab exam showed CBC with white count 11.8, hemoglobin 10.9, platelet count is 258,000. Arterial blood gases; pH 7.40, pCO2 of 41, pO2 of CONSULT REPORT [id number] ROMEL BLANCAS 158, on BiPAP at 100%. Her chemistry is remarkable for potassium of 3.4, sodium is 140. Her BNP is 367. Troponin I is normal. Phosphorus is 1.8. Alpha-1 antitrypsin is 75, which is low. Phenotype is MZ. ASSESSMENT: 1. Severe chronic obstructive pulmonary disease secondary to alpha-1 antitrypsin deficiency, currently on treatment with Prolastin. The patient has Trilogy at home. Also has nebulizer. 2. History of viral cardiomyopathy, resolved. 3. No effect on liver function. 4. The patient also had extensive tests regarding the heart, but it appears her main problem is the alpha-1 antitrypsin deficiency, especially with the lungs. PLAN: 1. Bronchodilators. 2. Systemic steroids, Solu-Medrol. 3. Lovenox subcutaneous for DVT prophylaxis. 4. Continue Prolastin every week. The sister will premedicate to be administered in the hospital. 5. Oxygen supplementation. 6. The patient has hypophosphatemia with weakness in muscles. This will be supplemented. The time spent is 70 minutes. TRANSINT:[id number] Voice Confirmation ID: [id number] DOCUMENT ID: [id number] BRAYAN BERMUDEZ at 0850 CC: [id number] DICTATION DATE: 12/20/172038 INDUCTION FURNACE OPERATOR: 12/21/17 08 ADM IN [place] [id number] [place] [address]
--- NOTE | ~2017-12-19 | PN ---
PATIENT:ROMEL BLANCAS MEDICAL RECORD: [id number] [facility] AD[facility] DATE: 12/20/17 PROGRESS NOTE DATE OF SERVICE: 12/21/2017 SUBJECTIVE: This is a 52-year-old female, who has had a history of alpha-1 antitrypsin deficiency with very low levels. The patient takes weekly supplement, but her levels have remained low. She has had decreasing FEV1. She has had shortness of breath with severe exertional dyspnea. There is no sputum production. There is no fever. The patient does also have very heavy anxiety and depression. The patient's medications were slightly changed yesterday. She is feeling she is a little bit better today. She was able to sit about 1-1/2 hours. PHYSICAL EXAMINATION: GENERAL: Reveals a well-developed, well-nourished female, who is in no acute distress, sitting in chair. VITAL SIGNS: Temperature 99.1, heart rate of 98, respiratory rate of 22, blood pressure 153/81. SHEENT: Unremarkable. NECK: Supple. There is no adenopathy. Trachea is midline. CHEST: Clear bilaterally with good airflow. CARDIAC: Shows no jugular venous distention, murmur or gallops. ABDOMEN: Benign, without any tenderness. EXTREMITIES: Shows no clubbing, cyanosis or edema. LABORATORY DATA: Lab exam showed white count of 12.6, hemoglobin 11.0, platelet count is 355. Chemistry is remarkable for potassium 3.4, creatinine is 0.9. Blood cultures show no growth. Urine shows Staph epidermidis, plus probably contaminant. Chest x-ray shows no acute disease. ASSESSMENT: 1. Severe chronic obstructive pulmonary disease with limitations. 2. Alpha-1 antitrypsin deficiency syndrome. PLAN: 1. Continue medications. 2. Add Spiriva. clarified that the patient is not allergic to ipratropium. TRANSINT:[id number] Voice Confirmation ID: [id number] DOCUMENT ID: [id number] BRAYAN BERMUDEZ at 1411 CC: [id number] DICTATION DATE: 12/21/172031 CHEF BROILER OR FRY: 12/22/17 06[facility] IN [place] [id number] [place] [address]
--- NOTE | ~2017-12-19 | PN ---
PATIENT:ROMEL BLANCAS MEDICAL RECORD: [id number] LOCATION:D.M2 D.210 ADMISSION DATE: 12/20/17 PROGRESS NOTE DATE OF SERVICE: 12/24/2017 SUBJECTIVE: This is a 52-year-old female who has had history of COPD with alpha-1 antitrypsin deficiency. The patient has had history of chronic obstructive pulmonary disease and recurrent acute asthmatic bronchitis. The patient has had postnasal drainage. She also has had coughing with hyperinflated lung. She is admitted for increasing shortness of breath. No chest pain. No orthopnea. She has limited mobility because of shortness of breath. The patient is being treated with bronchodilators and systemic steroids. She has also required extensive oxygen supplementation. The patient also has no fever. The patient is ambulatory in the room. She still has some cough with tainted blood. There is no chest pain. PHYSICAL EXAMINATION: GENERAL: Reveals well-developed and well-nourished woman, who is in no acute distress. VITAL SIGNS: Temperature 98.1, heart rate of 85, respiratory rate of 20, blood pressure 108/68, saturation is 97% on 7 liters. SHEENT: Unremarkable. Nasal passages are normal with mild redness and no obstruction. CHEST: Shows some mild basilar crackles. CARDIAC: Shows no jugular venous distention, murmur, or gallop. ABDOMEN: Benign without any tenderness. EXTREMITIES: Show no clubbing, cyanosis, or edema. LABORATORY DATA: Lab exam showed CBC showed white count of 14.1, hemoglobin 10.9, platelet count is 283,000. Chemistry is remarkable for potassium of 3.9. ASSESSMENT: 1. Qxoly-jc-vbqaauz respiratory failure with hypoxemia. 2. COPD exacerbation with chronic obstructive pulmonary disease. 3. Nicotine abuse. 4. Mucous retention. PLAN: 1. Bronchodilator and Solu-Medrol. 2. Oxygen supplementation to keep saturation around 92. 3. Antibiotics. 4. DVT prophylaxis. TRANSINT:[id number] Voice Confirmation ID: [id number] DOCUMENT ID: [id number] PROGRESS NOTE [id number] ROMEL BLANCAS BRAYAN BERMUDEZ at 1614 CC: [id number] DICTATION DATE: 12/24/17 1345 LIVESTOCK SLAUGHTERER: 12/24/172020 ADM IN [place] [id number] [place] [address]
--- NOTE | ~2017-12-19 | PN ---
PATIENT:ROMEL BLANCAS MEDICAL RECORD: [id number] [facility]: 12/20/17 PROGRESS NOTE DATE OF SERVICE: 12/23/2017 SUBJECTIVE: This is a 32-year-old female, who has severe COPD secondary to alpha-1 antitrypsin deficiency. The patient has a decline in FEV1 and has had increasing shortness of breath. There is no sputum production. There is no nausea or vomiting. The patient did not have any chest pain. No fever or chills. She had an uneventful night. The patient still has anxiety. PHYSICAL EXAMINATION: GENERAL: Reveals a middle-aged female, who is in no acute distress. VITAL SIGNS: Temperature 97.7, heart rate of 95, respiratory rate of 19, blood pressure 145/71, saturation is 99% on 2 liters. SHEENT: Unremarkable. NECK: Supple. Trachea is midline. There is no thyromegaly. There is no adenopathy. CHEST: Clear with good airflow bilaterally. There are no wheezes. There are no crackles. No chest wall tenderness or accessory muscles use. CARDIAC: Shows no jugular venous distention, murmur, or gallops. ABDOMEN: Benign without tenderness or distention. EXTREMITIES: Shows no clubbing, cyanosis, or edema. NEUROLOGIC: The patient shows no focal signs. LABORATORY DATA: Lab exam shows white count of 11.9, hemoglobin 10.3, and platelet count is 331,000. Chemistry is unremarkable. ASSESSMENT: Severe chronic obstructive pulmonary disease with alpha-1 antitrypsin deficiency. PLAN: 1. Continue bronchodilators and Spiriva. 2. Begin to taper Solu-Medrol. TRANSINT:[id number] Voice Confirmation ID: [id number] DOCUMENT ID: [id number] BRAYAN BERMUDEZ at 1300 CC: [id number] DICTATION DATE: 12/23/17 1329 ENERGY EFFICIENCY SPECIALIST: 12/23/17 1425 ADM IN [place] [id number] [place] [id number]
--- NOTE | ~2017-12-19 | CN ---
PATIENT NAME:ROMEL BLANCAS MEDICAL RECORD: [id number] : 61 LOCATION:D.M3 D.1209 ADMIT DATE: 12/20/17 ACCOUNT: [id number] CONSULTING PHYSICIAN: YUNIEL PATEL MD REFERRING PHYSICIAN: JEY BURNS MD DATE OF CONSULTATION: 12/22/2017 PSYCHIATRIC CONSULTATION IDENTIFYING DATA: The patient is 52 years old and she is admitted to the hospital on a voluntary basis. CHIEF COMPLAINT: Depression. HISTORY OF PRESENT ILLNESS: The patient is a very unfortunate woman who has a combination of medical problems and psychiatric issues. She unfortunately has a history of congestive heart failure, leukocytosis, and chronic and degenerative lung disease secondary to alpha-1 antitrypsin deficiency. She is on oxygen continuously and easily desaturates. Her psychiatric issues are related to long-standing essentially lifelong problems with depression and anxiety along with some alcoholism. She is living with her mother now. She does not drink and her family watches her medicines very closely. She has been on Xanax recently with little or no improvement. Her sister, who is a well-known and respected nurse practitioner here, is in the room and provides very useful history. The patient also was followed by the [facility] in [place] and is treated with an antidepressant and a mood stabilizer. MENTAL STATUS EXAMINATION: The patient is awake; alert; and oriented to person, place, and situation. She is mistaken about the date. Her mood is depressed. Her affect is constricted. Thought processes are circumstantial. Memory, concentration, and abstraction abilities are mildly impaired and she denies that she would seek to harm herself or others as well as overt psychotic symptoms. ASSESSMENT: 1. Major depression, severe, recurrent, without psychotic features. 2. Generalized anxiety disorder. PLAN: At this time, the patient will be maintained on her medications from Dr. Gannon. I am going to prescribe a low dose of Klonopin to assist with her underlying anxiety. Her long-term prognosis is guarded. Follow up should be with Dr. Gannon or a local psychiatrist if she cannot manage to get to [place]. TRANSINT:[id number] Voice Confirmation ID: [id number] DOCUMENT ID: [id number] YUNIEL PATEL MD at 0743 CC: [id number] DICTATION DATE: 12/22/17 1350 FOOD SERVICE ORDER CLERK: 12/22/17 1404 ADM IN [facility] [address] [id number]
--- NOTE | ~2017-12-19 | PN ---
PATIENT:ROMEL BLANCAS MEDICAL RECORD: [id number] LOCATION:D. D.210 ADMISSION DATE: 12/20/17 PROGRESS NOTE DATE OF SERVICE: 12/24/2017 SUBJECTIVE: This is a 52-year-old female who has had history of alpha-1 antitrypsin deficiency and COPD. The patient has had increasing shortness of breath. She has had FEV1 decreasing. The patient has had trypsin supplement without significant improvement. The patient was admitted to the Emergency Room with increasing shortness of breath. There is no sputum production. There is no fever. She has had severe anxiety and depression. She is also undergoing divorce. The patient has noted onset of sore throat. There is no fever. PHYSICAL EXAMINATION: VITAL SIGNS: Temperature 98.1, heart rate of 89, respiratory rate of 20, blood pressure 128/61, saturation is 97 on 2-1/2 liters. SHEENT: Unremarkable. NECK: Supple. CHEST: Clear. No wheezes or crackles. CARDIAC: Shows no jugular venous distention, murmur, or gallop. ABDOMEN: Benign without any tenderness, distention, or masses. EXTREMITIES: Show no clubbing, cyanosis, or edema. LABORATORY DATA: Lab exam showed white count of 14.1, hemoglobin 10.9, platelet count is 283,000. Chemistry is unremarkable. Potassium 3.9. ASSESSMENT: 1. Acute exacerbation of chronic obstructive pulmonary disease. 2. Alpha-1 antitrypsin deficiency. 3. Oral thrush. 4. Anxiety and depression. PLAN: 1. Mycelex Odalys lick and swallow t.i.d. 2. Continue bronchodilators. 3. Taper steroids. 4. Physical therapy. The patient may need pulmonary rehab. TRANSINT:[id number] Voice Confirmation ID: [id number] DOCUMENT ID: [id number] BRAYAN BERMUDEZ at 1614 CC: [id number] DICTATION DATE: 12/24/17 0482 CELERY TIER: 12/24/178 ADM IN [place] [id number]
--- NOTE | ~2017-12-19 | PN ---
PATIENT:ROMEL BLANCAS MEDICAL RECORD: [id number] [facility] AD[facility] DATE: 12/20/17 PROGRESS NOTE DATE OF SERVICE: 12/22/2017 SUBJECTIVE: This is a 52-year-old female who has history of COPD with alpha-1 antitrypsin deficiency. The patient has also had a history of severe depression and anxiety. The patient also has increasing shortness of breath and requires increasing doses of medications. The patient has been doing well since admission. She was able to sleep mostly at night. There is no coughing. There is no chest pain. There is no fever. PHYSICAL EXAMINATION: GENERAL: Reveals a well-developed, well-nourished middle-aged female who is in no acute distress. VITAL SIGNS: Temperature 98.6, heart rate 110, respiratory rate of 19, blood pressure 152/67, saturation 99%. SHEENT: Unremarkable. NECK: Supple. LUNGS: Clear with good airflow bilaterally. No crackles or wheezes. No chest wall tenderness. CARDIAC: Shows no jugular venous distention, murmur or gallops. ABDOMEN: Benign without tenderness or distention. EXTREMITIES: Shows no clubbing, cyanosis or edema. LABORATORY DATA: Show white count 13, hemoglobin 10.4. Chemistry is unremarkable. ASSESSMENT: 1. Acute exacerbation of chronic obstructive pulmonary disease secondary to alpha-1 antitrypsin deficiency. 2. Atrial flutter, atrial fibrillation. The patient's heart rate is mildly controlled by Cardizem. We will increase the dose. Continue her treatment. PLAN: Continue bronchodilators Add spiriva Increase cardizem. TRANSINT:[id number] Voice Confirmation ID: [id number] DOCUMENT ID: [id number] BRAYAN BERMUDEZ at 1229 CC: [id number] DICTATION DATE: 12/22/17 1502 RECREATION PROGRAM COORDINATOR: 12/22/17 1528 [place] [address]
[~2017-12-19 22:24] MED LIST changes: +ATROVENT 0.02%2.5 ML UPD; +BROVANA15 MCG/2 M INH; +DALIRESP500 MCG PO; +DOXYCYCLINE HY100 M2 PO; +FEXOFENADINE HC60 MG PO; +LUNESTA2 M1 PO; +PREDNISONE20 MG PO; +PULMICORT0.5 MG/21 UPD; +VICTOZA0.6 MG/0.1 SQ; +XOPENEX 0.0.63 MG/3 UPD
[2017-12-19 23:00] VITALS: BP 128/85
[2017-12-19 23:48] LABS: HEMATOCRIT 35.5 % (36.0-48.0); HEMOGLOBIN 11.5 g/dL (12-16); LYMPHOCYTES 6.2 % (15-50); MCH 31.4 pg (26.0-34.0); MCHC 32.4 g/dL (31.0-37.0); MEAN PLATELET VOLUME 9.6 fL (7.4-10.4); NEUTROPHILS 85.5 % (40-80); PLATELET COUNT 345 10x3/uL (130-400); RBC 3.66 10x6/uL (4.00-5.40); WBC 12.4 10x3/uL (4.8-10.8)
[2017-12-19 23:59] LABS: APTT 23.1 SECONDS (22.8-39.4); PROTIME 12.8 SECONDS (11.6-15.0)
[2017-12-20] VITALS (13 sets, daily range): BP systolic 125–175; BP diastolic 51–104; BMI 24.0
[2017-12-20] LABS: D-DIMER-QUANTITATIVE 0.34 ug/mLFEU (0.20-0.54)
[2017-12-20 00:07] LABS: ALBUMIN 3.1 g/dL (3.4-5.0); ALKALINE PHOSPHATASE 75 U/L (46-116); ALT (SGPT) 39 U/L (10-68); BILIRUBIN - TOTAL 0.28 mg/dL (0.2-1.3); CALC OSMOLALITY 283 mosm/kg (275-300); CALCIUM 9.7 mg/dL (8.5-10.1); CARBON DIOXIDE 30.2 mmol/L (21.0-32.0); CHLORIDE - SERUM 103 mmol/L (98-107); CREATININE - SERUM 0.8 mg/dL (0.6-1.3); POTASSIUM - SERUM 3.4 mmol/L (3.5-5.1); PROTEIN - SERUM 6.5 g/dL (6.4-8.2); SODIUM 140 mmol/L (136-145); UREA NITROGEN 16 mg/dL (7-18); eGFR NON AFRICAN AMERICAN 79 mL/min (90-120)
[2017-12-20 00:13] LABS: GLUCOSE 176 mg/dL (74-106)
[2017-12-20 00:18] LABS: CREATINE KINASE 47 UL (21-215); PRO BNP 367 pg/mL (0-125); TROPONIN-I 0.019 ng/mL (0.000-0.060)
[2017-12-20 04:14] LABS: CREATINE KINASE 36 UL (21-215); TROPONIN-I < 0.017 ng/mL (0.000-0.060)
[2017-12-20 09:29] LABS: BASOPHILS 0 % (0-2); EOSINOPHILS 0.8 % (0-7); HEMATOCRIT 35.3 % (36.0-48.0); HEMOGLOBIN 10.9 g/dL (12-16); IMMATURE GRANULOCYTES 0.6 % (0-5); LYMPHOCYTES 13.5 % (15-50); MCH 30.8 pg (26.0-34.0); MCHC 30.9 g/dL (31.0-37.0); MEAN PLATELET VOLUME 10.2 fL (7.4-10.4); NEUTROPHILS 76.1 % (40-80); PLATELET COUNT 350 10x3/uL (130-400); RBC 3.54 10x6/uL (4.00-5.40); RDW 14.7 % (11.5-14.5); WBC 11.8 10x3/uL (4.8-10.8)
[2017-12-20 09:35] LABS: MCV 99.7 fL (80.0-100.0)
[2017-12-20 12:28] LABS: CKMB 2.6 U/L (0.0-3.6); CREATINE KINASE 36 UL (21-215); TROPONIN-I < 0.017 ng/mL (0.000-0.060)
[2017-12-20 18:19] LABS: CKMB 2.3 U/L (0.0-3.6); CREATINE KINASE 32 UL (21-215); TROPONIN-I < 0.017 ng/mL (0.000-0.060)
[2017-12-20] MEDS ORDERED: CARTIA XT120 MG PO (19:38)
[2017-12-20] MEDS ORDERED: SPIRIVA18 MCG INH (19:39)
[2017-12-21 04:42] VITALS: BP 154/106
[2017-12-21 04:55] LABS: BASOPHILS 0 % (0-2); EOSINOPHILS 0 % (0-7); HEMATOCRIT 34.7 % (36.0-48.0); IMMATURE GRANULOCYTES 0.4 % (0-5); LYMPHOCYTES 3.2 % (15-50); MCH 31.1 pg (26.0-34.0); MCHC 31.7 g/dL (31.0-37.0); MEAN PLATELET VOLUME 10.3 fL (7.4-10.4); MONOCYTES 3.2 % (2-11); NEUTROPHILS 93.2 % (40-80); PLATELET COUNT 355 10x3/uL (130-400); RBC 3.54 10x6/uL (4.00-5.40); RDW 14.3 % (11.5-14.5); WBC 12.6 10x3/uL (4.8-10.8)
[2017-12-21 05:41] LABS: ANION GAP 11.9 mmol/L (8-16); BILIRUBIN - TOTAL 0.28 mg/dL (0.2-1.3); CARBON DIOXIDE 29.5 mmol/L (21.0-32.0); CREATININE - SERUM 0.9 mg/dL (0.6-1.3); MAGNESIUM - SERUM 2.2 mg/dL (1.8-2.4); POTASSIUM - SERUM 3.4 mmol/L (3.5-5.1); PROTEIN - SERUM 6.5 g/dL (6.4-8.2)
[2017-12-21 07:12] VITALS: BP 156/82
[2017-12-21 10:43] VITALS: Ht 162.6 cm; Wt 54.0 kg
[2017-12-21 10:57] VITALS: BP 132/101
[2017-12-21 14:56] VITALS: BP 153/81
[2017-12-21 19:26] VITALS: BP 152/75
[2017-12-21 23:58] VITALS: BP 121/61
[2017-12-22 04:52] LABS: BASOPHILS 0 % (0-2); EOSINOPHILS 0 % (0-7); HEMATOCRIT 33.1 % (36.0-48.0); HEMOGLOBIN 10.4 g/dL (12-16); IMMATURE GRANULOCYTES 0.2 % (0-5); LYMPHOCYTES 1.9 % (15-50); MCH 31.2 pg (26.0-34.0); MCHC 31.4 g/dL (31.0-37.0); MCV 99.4 fL (80.0-100.0); MEAN PLATELET VOLUME 10.1 fL (7.4-10.4); MONOCYTES 2.9 % (2-11); PLATELET COUNT 334 10x3/uL (130-400); RBC 3.33 10x6/uL (4.00-5.40); RDW 14.5 % (11.5-14.5)
[2017-12-22 05:17] LABS: ALBUMIN 2.9 g/dL (3.4-5.0); ANION GAP 8.5 mmol/L (8-16); BILIRUBIN - TOTAL 0.39 mg/dL (0.2-1.3); CALCIUM 9.6 mg/dL (8.5-10.1); CARBON DIOXIDE 31.4 mmol/L (21.0-32.0); POTASSIUM - SERUM 3.9 mmol/L (3.5-5.1)
[2017-12-22 06:10] VITALS: BP 162/90
[2017-12-22 07:34] VITALS: BP 143/76
[2017-12-22 11:16] VITALS: BP 152/67
[2017-12-22 15:20] VITALS: BP 108/53
[2017-12-22 15:26] VITALS: BP 108/53
[2017-12-22 15:38] LABS: BASOPHILS 0 % (0-2); EOSINOPHILS 0 % (0-7); HEMATOCRIT 33.6 % (36.0-48.0); HEMOGLOBIN 10.6 g/dL (12-16); IMMATURE GRANULOCYTES 0.4 % (0-5); LYMPHOCYTES 4.8 % (15-50); MCH 31.2 pg (26.0-34.0); MCHC 31.5 g/dL (31.0-37.0); MCV 98.8 fL (80.0-100.0); MEAN PLATELET VOLUME 9.8 fL (7.4-10.4); MONOCYTES 2.4 % (2-11); NEUTROPHILS 92.4 % (40-80); PLATELET COUNT 351 10x3/uL (130-400); RDW 14.9 % (11.5-14.5); WBC 14.7 10x3/uL (4.8-10.8)
[2017-12-22 16:25] LABS: ALBUMIN 3.1 g/dL (3.4-5.0); ALKALINE PHOSPHATASE 67 U/L (46-116); ALT (SGPT) 36 U/L (10-68); CALC OSMOLALITY 289 mosm/kg (275-300); CALCIUM 9.7 mg/dL (8.5-10.1); CARBON DIOXIDE 28.1 mmol/L (21.0-32.0); CHLORIDE - SERUM 108 mmol/L (98-107); CREATININE - SERUM 0.8 mg/dL (0.6-1.3); GLUCOSE 151 mg/dL (74-106); POTASSIUM - SERUM 3.8 mmol/L (3.5-5.1); PROTEIN - SERUM 5.8 g/dL (6.4-8.2); SODIUM 143 mmol/L (136-145); UREA NITROGEN 17 mg/dL (7-18); eGFR NON AFRICAN AMERICAN 79 mL/min (90-120)
[2017-12-23 04:00] VITALS: BP 134/69
[2017-12-23 05:36] LABS: BASOPHILS 0 % (0-2); EOSINOPHILS 0 % (0-7); HEMATOCRIT 33.1 % (36.0-48.0); HEMOGLOBIN 10.3 g/dL (12-16); IMMATURE GRANULOCYTES 0.4 % (0-5); LYMPHOCYTES 2.1 % (15-50); MCH 30.8 pg (26.0-34.0); MCHC 31.1 g/dL (31.0-37.0); MCV 99.1 fL (80.0-100.0); MONOCYTES 2.4 % (2-11); NEUTROPHILS 95.1 % (40-80); PLATELET COUNT 341 10x3/uL (130-400); RBC 3.34 10x6/uL (4.00-5.40); RDW 14.8 % (11.5-14.5); WBC 11.9 10x3/uL (4.8-10.8)
[2017-12-23 06:28] LABS: ANION GAP 11.9 mmol/L (8-16); BILIRUBIN - TOTAL 0.24 mg/dL (0.2-1.3); CALCIUM 9.6 mg/dL (8.5-10.1); CARBON DIOXIDE 27.2 mmol/L (21.0-32.0); POTASSIUM - SERUM 4.1 mmol/L (3.5-5.1); PROTEIN - SERUM 6.1 g/dL (6.4-8.2)
[2017-12-23 07:50] VITALS: BP 145/71
[2017-12-23 12:19] VITALS: BP 132/70
[2017-12-23 19:37] VITALS: BP 134/72
[2017-12-23 23:16] VITALS: BP 134/66
[2017-12-24 04:18] VITALS: BP 122/64
[2017-12-24 07:54] LABS: BASOPHILS 0 % (0-2); EOSINOPHILS 0.1 % (0-7); HEMOGLOBIN 10.9 g/dL (12-16); IMMATURE GRANULOCYTES 0.9 % (0-5); LYMPHOCYTES 6.3 % (15-50); MCH 31.1 pg (26.0-34.0); MCHC 31.1 g/dL (31.0-37.0); MCV 99.7 fL (80.0-100.0); MEAN PLATELET VOLUME 9.9 fL (7.4-10.4); MONOCYTES 8.8 % (2-11); NEUTROPHILS 83.9 % (40-80); PLATELET COUNT 383 10x3/uL (130-400); RBC 3.51 10x6/uL (4.00-5.40); WBC 14.1 10x3/uL (4.8-10.8)
[2017-12-24 08:23] VITALS: BP 106/52
[2017-12-24 08:23] LABS: ALBUMIN 3.1 g/dL (3.4-5.0); ANION GAP 12.2 mmol/L (8-16); BILIRUBIN - TOTAL 0.24 mg/dL (0.2-1.3); CALCIUM 9.5 mg/dL (8.5-10.1); CARBON DIOXIDE 27.7 mmol/L (21.0-32.0); CREATININE - SERUM 0.9 mg/dL (0.6-1.3); PHOSPHOROUS 2.9 mg/dL (2.5-4.9); POTASSIUM - SERUM 3.9 mmol/L (3.5-5.1); PROTEIN - SERUM 5.9 g/dL (6.4-8.2)
[2017-12-24 11:05] VITALS: BP 128/61
[2017-12-24 15:02] VITALS: BP 118/64
[2017-12-24 19:40] VITALS: BP 153/79
[2017-12-24 22:36] VITALS: BP 141/62
[2017-12-25 04:36] LABS: BASOPHILS 0.1 % (0-2); EOSINOPHILS 0.2 % (0-7); HEMATOCRIT 31.7 % (36.0-48.0); HEMOGLOBIN 10.1 g/dL (12-16); IMMATURE GRANULOCYTES 1.5 % (0-5); LYMPHOCYTES 6.5 % (15-50); MCHC 31.9 g/dL (31.0-37.0); MCV 100.3 fL (80.0-100.0); MEAN PLATELET VOLUME 10.4 fL (7.4-10.4); MONOCYTES 8.1 % (2-11); NEUTROPHILS 83.6 % (40-80); PLATELET COUNT 351 10x3/uL (130-400); RBC 3.16 10x6/uL (4.00-5.40); RDW 14.9 % (11.5-14.5); WBC 11.9 10x3/uL (4.8-10.8)
[2017-12-25 05:13] LABS: ALBUMIN 2.8 g/dL (3.4-5.0); ALKALINE PHOSPHATASE 66 U/L (46-116); ALT (SGPT) 35 U/L (10-68); BILIRUBIN - TOTAL 0.15 mg/dL (0.2-1.3); CALC OSMOLALITY 289 mosm/kg (275-300); CALCIUM 9.1 mg/dL (8.5-10.1); CARBON DIOXIDE 28.7 mmol/L (21.0-32.0); CHLORIDE - SERUM 108 mmol/L (98-107); CREATININE - SERUM 0.8 mg/dL (0.6-1.3); GLUCOSE 94 mg/dL (74-106); PROTEIN - SERUM 5.4 g/dL (6.4-8.2); SODIUM 145 mmol/L (136-145); UREA NITROGEN 15 mg/dL (7-18); eGFR NON AFRICAN AMERICAN 79 mL/min (90-120)
[2017-12-25 06:09] VITALS: BP 154/71
[2017-12-25 07:46] VITALS: BP 143/78
[2017-12-25 12:45] VITALS: BP 133/49
[2017-12-25 16:29] VITALS: BP 153/87
[2017-12-25 20:03] VITALS: BP 144/64
[2017-12-26 04:00] VITALS: BP 133/75
[2017-12-26 05:05] LABS: BASOPHILS 0.1 % (0-2); EOSINOPHILS 0.1 % (0-7); HEMATOCRIT 31.7 % (36.0-48.0); HEMOGLOBIN 9.8 g/dL (12-16); IMMATURE GRANULOCYTES 1.6 % (0-5); LYMPHOCYTES 5.4 % (15-50); MCH 31.1 pg (26.0-34.0); MCHC 30.9 g/dL (31.0-37.0); MCV 100.6 fL (80.0-100.0); MEAN PLATELET VOLUME 10.3 fL (7.4-10.4); MONOCYTES 6.6 % (2-11); NEUTROPHILS 86.2 % (40-80); PLATELET COUNT 325 10x3/uL (130-400); RBC 3.15 10x6/uL (4.00-5.40); RDW 14.9 % (11.5-14.5); WBC 12.1 10x3/uL (4.8-10.8)
[2017-12-26 05:34] LABS: CALC OSMOLALITY 291 mosm/kg (275-300); CHLORIDE - SERUM 109 mmol/L (98-107); CREATININE - SERUM 0.6 mg/dL (0.6-1.3); GLUCOSE 88 mg/dL (74-106); SODIUM 147 mmol/L (136-145); UREA NITROGEN 15 mg/dL (7-18); eGFR NON AFRICAN AMERICAN > 90 mL/min (90-120)
[2017-12-26 05:36] LABS: POTASSIUM - SERUM 2.9 mmol/L (3.5-5.1)
[2017-12-26 07:07] LABS: APPEARANCE SL CLDY (CLEAR); BACTERIA FEW /hpf (NONE SEEN); BILIRUBIN NEGATIVE (NEGATIVE); COLOR YELLOW (YELLOW); EPITHELIAL CELLS 0-5 /hpf (0-5); GLUCOSE NEGATIVE (NEGATIVE); KETONE NEGATIVE (NEGATIVE); MUCUS <1+ /lpf (NONE SEEN); NITRITE NEGATIVE (NEGATIVE); PROTEIN NEGATIVE (NEGATIVE); RED CELLS - URINE 25-50 /hpf (0-5); SPECIFIC GRAVITY 1.005 (1.005-1.020); UROBILINOGEN NORMAL (NORMAL); WHITE CELLS - URINE 0-5 /hpf (0-5)
[2017-12-26 08:29] VITALS: BP 136/72
[2017-12-26 11:24] LABS: IMMUNOGLOBULIN A 54 mg/dL (87-352); IMMUNOGLOBULIN G 428 mg/dL (700-1600); IMMUNOGLOBULIN M 62 mg/dL (26-217)
[2017-12-26 11:37] VITALS: BP 125/107
[2017-12-26 15:20] VITALS: BP 140/73
[2017-12-26 15:25] LABS: EBV - EARLY ANTIGEN AB IGG 10.6 U/mL (0.0-8.9); EBV - NUCLEAR ANTIGEN AB IGG 88.1 U/mL (0.0-17.9); EBV VIRAL CAPSID AB IGG 70.1 U/mL (0.0-17.9); EBV VIRAL CAPSID AB IGM <36.0 U/mL (0.0-35.9)
[2017-12-26 20:17] VITALS: BP 136/69
[2017-12-27 04:51] LABS: BASOPHILS 0.1 % (0-2); EOSINOPHILS 1.5 % (0-7); HEMATOCRIT 33.7 % (36.0-48.0); HEMOGLOBIN 10.6 g/dL (12-16); IMMATURE GRANULOCYTES 1.4 % (0-5); MCH 31.7 pg (26.0-34.0); MCHC 31.5 g/dL (31.0-37.0); MCV 100.9 fL (80.0-100.0); MEAN PLATELET VOLUME 10.1 fL (7.4-10.4); MONOCYTES 5.2 % (2-11); NEUTROPHILS 81.8 % (40-80); PLATELET COUNT 323 10x3/uL (130-400); RBC 3.34 10x6/uL (4.00-5.40); RDW 15.2 % (11.5-14.5); WBC 11.9 10x3/uL (4.8-10.8)
[2017-12-27 04:55] VITALS: BP 153/75
[2017-12-27 05:15] LABS: CALC OSMOLALITY 286 mosm/kg (275-300); CALCIUM 8.7 mg/dL (8.5-10.1); CARBON DIOXIDE 32.9 mmol/L (21.0-32.0); CHLORIDE - SERUM 107 mmol/L (98-107); CREATININE - SERUM 0.7 mg/dL (0.6-1.3); GLUCOSE 76 mg/dL (74-106); POTASSIUM - SERUM 3.1 mmol/L (3.5-5.1); SODIUM 145 mmol/L (136-145); eGFR NON AFRICAN AMERICAN > 90 mL/min (90-120)
[2017-12-27 05:16] LABS: UREA NITROGEN 10 mg/dL (7-18)
[2017-12-27 07:30] VITALS: BP 146/91
[2017-12-27 15:36] VITALS: BP 156/95
[2017-12-27 19:28] VITALS: BP 129/83
[2017-12-27 23:59] VITALS: BP 136/79
[2017-12-28 04:00] VITALS: BP 142/90
[2017-12-28 04:52] LABS: BASOPHILS 0 % (0-2); EOSINOPHILS 2.5 % (0-7); HEMOGLOBIN 9.3 g/dL (12-16); IMMATURE GRANULOCYTES 1.1 % (0-5); LYMPHOCYTES 11.3 % (15-50); MCH 31.1 pg (26.0-34.0); MCV 100.3 fL (80.0-100.0); MEAN PLATELET VOLUME 10.2 fL (7.4-10.4); MONOCYTES 5.3 % (2-11); NEUTROPHILS 79.8 % (40-80); PLATELET COUNT 283 10x3/uL (130-400); RBC 2.99 10x6/uL (4.00-5.40); RDW 15.3 % (11.5-14.5)
[2017-12-28 05:02] LABS: WBC 8.5 10x3/uL (4.8-10.8)
[2017-12-28 05:22] LABS: CALC OSMOLALITY 280 mosm/kg (275-300); CALCIUM 8.1 mg/dL (8.5-10.1); CARBON DIOXIDE 28.8 mmol/L (21.0-32.0); CHLORIDE - SERUM 107 mmol/L (98-107); CREATININE - SERUM 0.6 mg/dL (0.6-1.3); GLUCOSE 82 mg/dL (74-106); POTASSIUM - SERUM 3.1 mmol/L (3.5-5.1); SODIUM 142 mmol/L (136-145); UREA NITROGEN 9 mg/dL (7-18); eGFR NON AFRICAN AMERICAN > 90 mL/min (90-120)
[2017-12-28 08:01] VITALS: BP 148/90
[2017-12-28 13:21] LABS: LEAD None Detected ug/dL (0-4)
[2017-12-28 19:51] VITALS: BP 128/74
[2017-12-29] VITALS: BP 120/60
[2017-12-29 04:00] VITALS: BP 124/69
[2017-12-29 04:22] LABS: BASOPHILS 0 % (0-2); EOSINOPHILS 1.4 % (0-7); HEMATOCRIT 27.9 % (36.0-48.0); HEMOGLOBIN 8.8 g/dL (12-16); IMMATURE GRANULOCYTES 0.5 % (0-5); LYMPHOCYTES 10.3 % (15-50); MCH 31.4 pg (26.0-34.0); MCHC 31.5 g/dL (31.0-37.0); MCV 99.6 fL (80.0-100.0); MEAN PLATELET VOLUME 9.7 fL (7.4-10.4); MONOCYTES 6.8 % (2-11); PLATELET COUNT 243 10x3/uL (130-400); RDW 14.7 % (11.5-14.5)
[2017-12-29 04:46] LABS: CALC OSMOLALITY 281 mosm/kg (275-300); CALCIUM 8.5 mg/dL (8.5-10.1); CHLORIDE - SERUM 111 mmol/L (98-107); CREATININE - SERUM 0.7 mg/dL (0.6-1.3); GLUCOSE 112 mg/dL (74-106); SODIUM 142 mmol/L (136-145); UREA NITROGEN 8 mg/dL (7-18); eGFR NON AFRICAN AMERICAN > 90 mL/min (90-120)
[2017-12-29 07:16] VITALS: BP 140/76
[2017-12-29 11:22] VITALS: BP 151/58
[2017-12-29 15:16] VITALS: BP 154/82
[2017-12-29 20:22] VITALS: BP 108/42
[2017-12-30] VITALS: BP 122/51
[2017-12-30 06:31] LABS: BASOPHILS 0.1 % (0-2); EOSINOPHILS 1.1 % (0-7); HEMOGLOBIN 9.3 g/dL (12-16); IMMATURE GRANULOCYTES 0.3 % (0-5); LYMPHOCYTES 11.2 % (15-50); MEAN PLATELET VOLUME 9.7 fL (7.4-10.4); MONOCYTES 8.9 % (2-11); NEUTROPHILS 78.4 % (40-80); PLATELET COUNT 267 10x3/uL (130-400); RDW 14.9 % (11.5-14.5); WBC 9.3 10x3/uL (4.8-10.8)
[2017-12-30 06:35] VITALS: BP 124/43
[2017-12-30 06:46] LABS: CALCIUM 8.8 mg/dL (8.5-10.1); CARBON DIOXIDE 29.5 mmol/L (21.0-32.0); CHLORIDE - SERUM 111 mmol/L (98-107); CREATININE - SERUM 0.7 mg/dL (0.6-1.3); GLUCOSE 92 mg/dL (74-106); SODIUM 145 mmol/L (136-145); eGFR NON AFRICAN AMERICAN > 90 mL/min (90-120)
[2017-12-30 06:47] LABS: CALC OSMOLALITY 285 mosm/kg (275-300); POTASSIUM - SERUM 3.1 mmol/L (3.5-5.1); UREA NITROGEN 5 mg/dL (7-18)
[2017-12-30 07:53] VITALS: BP 130/41; BP 151/87
[2017-12-30 11:57] VITALS: BP 123/46
[2017-12-30 15:20] VITALS: BP 112/67
[2017-12-30 19:00] VITALS: BP 128/66
[2017-12-31 00:29] VITALS: BP 132/63
[2017-12-31 05:06] VITALS: BP 131/69
[2017-12-31 08:43] VITALS: BP 135/82
[2017-12-31 13:35] VITALS: BP 158/77
[2017-12-31 16:17] VITALS: BP 152/68
[2017-12-31 21:24] VITALS: BP 131/54
[2018-01-01 00:57] VITALS: BP 155/62
[2018-01-01 05:21] LABS: BASOPHILS 0 % (0-2); EOSINOPHILS 1.9 % (0-7); HEMATOCRIT 29.8 % (36.0-48.0); HEMOGLOBIN 9.5 g/dL (12-16); IMMATURE GRANULOCYTES 0.8 % (0-5); LYMPHOCYTES 12.5 % (15-50); MCHC 31.9 g/dL (31.0-37.0); MEAN PLATELET VOLUME 9.5 fL (7.4-10.4); MONOCYTES 8.3 % (2-11); NEUTROPHILS 76.5 % (40-80); PLATELET COUNT 280 10x3/uL (130-400); RBC 3.06 10x6/uL (4.00-5.40); RDW 14.7 % (11.5-14.5)
[2018-01-01 05:31] LABS: MCV 97.4 fL (80.0-100.0)
[2018-01-01 05:49] LABS: CALCIUM 8.7 mg/dL (8.5-10.1); CHLORIDE - SERUM 106 mmol/L (98-107); GLUCOSE 89 mg/dL (74-106); SODIUM 145 mmol/L (136-145)
[2018-01-01 05:50] LABS: CALC OSMOLALITY 284 mosm/kg (275-300); CREATININE - SERUM 0.5 mg/dL (0.6-1.3); UREA NITROGEN 3 mg/dL (7-18); eGFR NON AFRICAN AMERICAN > 90 mL/min (90-120)
[2018-01-01 05:51] LABS: POTASSIUM - SERUM 2.4 mmol/L (3.5-5.1)
[2018-01-01 05:52] VITALS: BP 140/59
[2018-01-01 07:59] VITALS: BP 139/68
[2018-01-01 14:44] LABS: MAGNESIUM - SERUM 2.1 mg/dL (1.8-2.4)
[2018-01-01 14:53] LABS: POTASSIUM - SERUM 3.6 mmol/L (3.5-5.1)
[2018-01-01 15:59] VITALS: BP 151/67
[2018-01-01 17:09] LABS: APPEARANCE CLEAR (CLEAR); COLOR YELLOW (YELLOW)
[2018-01-01 17:10] LABS: BILIRUBIN NEGATIVE (NEGATIVE); GLUCOSE NEGATIVE (NEGATIVE); KETONE LARGE mg/dL (NEGATIVE); NITRITE NEGATIVE (NEGATIVE); PROTEIN TRACE mg/dL (NEGATIVE); UROBILINOGEN NORMAL (NORMAL)
[2018-01-01 17:12] LABS: EPITHELIAL CELLS 0-5 /hpf (0-5)
[2018-01-01 20:00] VITALS: BP 154/71
[2018-01-02 05:56] LABS: BASOPHILS 0.1 % (0-2); EOSINOPHILS 1.8 % (0-7); HEMATOCRIT 31.2 % (36.0-48.0); HEMOGLOBIN 9.8 g/dL (12-16); IMMATURE GRANULOCYTES 0.4 % (0-5); LYMPHOCYTES 12.9 % (15-50); MCH 31.3 pg (26.0-34.0); MCHC 31.4 g/dL (31.0-37.0); MEAN PLATELET VOLUME 9.5 fL (7.4-10.4); NEUTROPHILS 76.8 % (40-80); PLATELET COUNT 292 10x3/uL (130-400); RBC 3.13 10x6/uL (4.00-5.40); RDW 15.1 % (11.5-14.5); WBC 9.3 10x3/uL (4.8-10.8)
[2018-01-02 06:14] LABS: MCV 99.7 fL (80.0-100.0)
[2018-01-02 06:29] LABS: CALCIUM 9.1 mg/dL (8.5-10.1); CHLORIDE - SERUM 107 mmol/L (98-107); GLUCOSE 84 mg/dL (74-106); POTASSIUM - SERUM 3.9 mmol/L (3.5-5.1); SODIUM 142 mmol/L (136-145); eGFR NON AFRICAN AMERICAN 79 mL/min (90-120)
[2018-01-02 06:30] LABS: CALC OSMOLALITY 278 mosm/kg (275-300); CREATININE - SERUM 0.8 mg/dL (0.6-1.3); UREA NITROGEN 4 mg/dL (7-18)
[2018-01-02 08:13] VITALS: BP 144/61
[2018-01-02 16:32] VITALS: BP 139/55
[2018-01-02 21:04] VITALS: BP 142/62
[2018-01-03 00:31] VITALS: BP 118/54
[2018-01-03 05:33] VITALS: BP 147/69
[2018-01-03 05:40] LABS: BASOPHILS 0.2 % (0-2); EOSINOPHILS 1.7 % (0-7); HEMATOCRIT 30.5 % (36.0-48.0); HEMOGLOBIN 9.7 g/dL (12-16); IMMATURE GRANULOCYTES 0.6 % (0-5); LYMPHOCYTES 11.1 % (15-50); MCH 31.6 pg (26.0-34.0); MCHC 31.8 g/dL (31.0-37.0); MCV 99.3 fL (80.0-100.0); MEAN PLATELET VOLUME 9.6 fL (7.4-10.4); MONOCYTES 6.6 % (2-11); NEUTROPHILS 79.8 % (40-80); PLATELET COUNT 331 10x3/uL (130-400); RBC 3.07 10x6/uL (4.00-5.40); RDW 14.9 % (11.5-14.5)
[2018-01-03 06:07] LABS: CALC OSMOLALITY 274 mosm/kg (275-300); CALCIUM 8.9 mg/dL (8.5-10.1); CARBON DIOXIDE 31.1 mmol/L (21.0-32.0); CHLORIDE - SERUM 103 mmol/L (98-107); CREATININE - SERUM 0.6 mg/dL (0.6-1.3); GLUCOSE 82 mg/dL (74-106); SODIUM 140 mmol/L (136-145); UREA NITROGEN 4 mg/dL (7-18); eGFR NON AFRICAN AMERICAN > 90 mL/min (90-120)
[2018-01-03 07:43] VITALS: BP 155/69
[2018-01-03] MEDS ORDERED: DALIRESP500 MCG PO (10:10)
[2018-01-03] MEDS ORDERED: KLONOPIN1 MG PO (10:10)
[2018-01-03] MEDS ORDERED: MUCINEX600 MG PO (10:10)
[2018-01-03] MEDS ORDERED: TESSALON PERLE100 MG PO (10:11)
[2018-01-03] MEDS ORDERED: PREDNISONE10 MG PO (10:12)
[2018-01-03] MEDS ORDERED: PROTONIX40 MG PO (10:12)
[2018-01-03] MEDS ORDERED: FLUTICASONE PRO16 GM NASAL (10:12)
[2018-01-03] MEDS ORDERED: FLORAJEN3 CAPS460 MG PO (10:12)
[2018-01-03] MEDS ORDERED: THIAMINE HCL50 MG PO (10:12)
[2018-01-03] MEDS ORDERED: XARELTO15 MG PO (10:13)
[2018-01-03] MEDS ORDERED: XOPENEX 0.0.63 MG/3 UPD (10:13)
[2018-01-03 11:30] VITALS: BP 145/68
== END 2018-01-03 13:56 | disposition home health service (06) | DRG 642 ==
LOC: D.ER 22:24 → OBSVTIME 12-20 00:32 → D.EDHOLD 12-20 00:32 → D.M3 12-20 00:32 → D.EDHOLD 12-20 00:32 → D.M3 12-20 11:53 → D.M2 12-20 18:49
PROVIDERS: Family Medicine; Family Medicine Adult Medicine; Internal Medicine; Internal Medicine Nephrology
DX: E88.01 Alpha-1-antitrypsin deficiency (principal); J96.21 Acute and chronic respiratory failure with hypoxia; G93.40 Encephalopathy, unspecified; J44.0 Chronic obstructive pulmonary disease with (acute) lower respiratory infection; J44.1 Chronic obstructive pulmonary disease with (acute) exacerbation; I42.9 Cardiomyopathy, unspecified; J20.9 Acute bronchitis, unspecified; F41.8 Other specified anxiety disorders; I50.9 Heart failure, unspecified; E55.9 Vitamin D deficiency, unspecified

== ENCOUNTER → 2018-02-05 20:13 | Outpatient (CLI) | payer BC ==
[2017-12-21 10:43] VITALS: BMI 24.0
[~2018-02-05 20:13] MED LIST changes: +CARTIA XT120 MG PO; +FLORAJEN3 CAPS460 MG PO; +FLUTICASONE PRO16 GM NASAL; +KLONOPIN1 MG PO; +MUCINEX600 MG PO; +PREDNISONE10 MG PO; +PROTONIX40 MG PO; +TESSALON PERLE100 MG PO; +THIAMINE HCL50 MG PO; +XARELTO15 MG PO
[2018-02-05 21:53] LABS: BASOPHILS 0.2 % (0-2); EOSINOPHILS 0 % (0-7); HEMATOCRIT 30.9 % (36.0-48.0); HEMOGLOBIN 9.6 g/dL (12-16); IMMATURE GRANULOCYTES 0.2 % (0-5); LYMPHOCYTES 6.9 % (15-50); MCH 30.8 pg (26.0-34.0); MCHC 31.1 g/dL (31.0-37.0); MEAN PLATELET VOLUME 10.7 fL (7.4-10.4); MONOCYTES 3.3 % (2-11); NEUTROPHILS 89.4 % (40-80); RBC 3.12 10x6/uL (4.00-5.40); RDW 14.5 % (11.5-14.5); WBC 9.4 10x3/uL (4.8-10.8)
[2018-02-05 21:54] LABS: PLATELET COUNT 262 10x3/uL (130-400)
[2018-02-05 22:11] LABS: ALBUMIN 3.3 g/dL (3.4-5.0); ALKALINE PHOSPHATASE 56 U/L (46-116); ALT (SGPT) 37 U/L (10-68); BILIRUBIN - TOTAL 0.11 mg/dL (0.2-1.3); CALC OSMOLALITY 289 mosm/kg (275-300); CALCIUM 9.7 mg/dL (8.5-10.1); CHLORIDE - SERUM 108 mmol/L (98-107); CREATININE - SERUM 0.7 mg/dL (0.6-1.3); GLUCOSE 117 mg/dL (74-106); MAGNESIUM - SERUM 1.9 mg/dL (1.8-2.4); POTASSIUM - SERUM 4.5 mmol/L (3.5-5.1); PRO BNP 139 pg/mL (0-125); PROTEIN - SERUM 6.2 g/dL (6.4-8.2); SODIUM 143 mmol/L (136-145); UREA NITROGEN 25 mg/dL (7-18); eGFR NON AFRICAN AMERICAN > 90 mL/min (90-120)
== END | disposition home or self-care (01) ==
LOC: D.LABREF 20:13
PROVIDERS: Family Medicine
DX: E87.6 Hypokalemia (principal)